=== PATIENT | male | born 1985 | race African-American/Black ===

== ENCOUNTER 2016-09-09 13:54 | Inpatient (IN) | payer OTHER ==
[2016-09-09 15:58] VITALS: BMI 30.8
--- NOTE | 2016-09-09 18:59 | HP ---
Admission ROS S - [facility] Chief Complaint: I WANT TO GO TO REHAB Allergies/Adverse Reactions: Allergies Allergy/AdvReac Type Severity Reaction Status Date / Time mushroom Allergy Severe Hives Verified 09/09/16 18:21 red meat Allergy Unknown Vomiting Uncoded 09/09/16 18:21 History of Present Illness: 31 YEARS OLD MALE WITH LONG HISTORY OF MARIJUANA NICOTINE DEPENDENCE, DENIES MEDICAL ISSUE HAS SCHIZOPHRENIA IS ADMITTED TO REHAB Exam Limitations: No Limitations - Ebola screening Have you traveled outside of the country in the last 21 days: No Have you had contact with anyone from an Ebola affected area: No Have you been sick,other than usual withdrawal symptoms: No Do you have a fever: No - Review of Systems Constitutional: Weight Stable EENT: reports: Other (EYE GLASSES) Respiratory: reports: No Symptoms reported Cardiac: reports: No Symptoms Reported GI: reports: Indigestion : reports: No Symptoms Reported Musculoskeletal: reports: No Symptoms Reported Integumentary: reports: No Symptoms Reported Neuro: reports: No Symptoms reported Endocrine: reports: No Symptoms Reported Hematology: reports: No Symptoms Reported Psychiatric: reports: Judgement Intact, Orientated x3 Other Systems: Reviewed and Negative Patient History - Patient Medical History Hx Anemia: No Hx Asthma: No Hx Chronic Obstructive Pulmonary Disease (COPD): No Hx Cancer: No Hx Cardiac Disorders: No Hx Congestive Heart Failure: No Hx Hypertension: No Hx Hypercholesterolemia: No Hx Pacemaker: No HX Cerebrovascular Accident: No Hx Seizures: No Hx Dementia: No Hx Diabetes: No Hx Gastrointestinal Disorders: Yes (GERD) Hx Liver Disease: No Hx Genitourinary Disorders: No Hx Sexually Transmitted Disorders: No Hx Renal Disease (ESRD): No Hx Thyroid Disease: No Hx Human Immunodeficiency Virus (HIV): No Hx Hepatitis C: No Hx Depression: No Hx Suicide Attempt: No Hx Bipolar Disorder: No Hx Schizophrenia: Yes - Patient Surgical History Past Surgical History: Yes Hx Neurologic Surgery: No Hx Cataract Extraction: No Hx Cardiac Surgery: No Hx Lung Surgery: No Hx Breast Surgery: No Hx Breast Biopsy: No Hx Abdominal Surgery: No Hx Appendectomy: No Hx Cholecystectomy: Yes (esophageal cyst removed) Hx Genitourinary Surgery: No Hx Orthopedic Surgery: No Anesthesia Reaction: No - PPD History Previous Implant?: Yes Documented Results: Negative w/o proof Implanted On Prior R Admission?: No PPD to be Administered?: Yes - Smoking Cessation Smoking history: Current every day smoker Have you smoked in the past 12 months: Yes Aproximately how many cigarettes per day: 40 Cigars Per Day: 0 Hx Chewing Tobacco Use: No Initiated information on smoking cessation: Yes 'Breaking Loose' booklet given: 09/09/16 - Substance & Tx. History Hx Alcohol Use: No Hx Substance Use: Yes Substance Use Type: Marijuana Hx Substance Use Treatment: Yes - Substances Abused Marijuana/Hashish Route: Smoking Frequency: Daily Amount used: 1/4 OZ Age of first use: 16 Date of Last Use: 09/08/16 Family Disease History - Family Disease History Family History: Denies Admission Physical Exam [facility] - Vital Signs Vital Signs: Vital Signs - 24 hr 09/09/16 15:56 Temperature 96.8 F L Pulse Rate 78 Respiratory 20 Rate Blood Pressure 130/76 - Physical General Appearance: Yes: Nourished, Appropriately Dressed HEENTM: Yes: Hearing grossly Normal, Normal ENT Inspection, Normocephalic, Normal Voice Respiratory: Yes: Chest Non-Tender, Lungs Clear, Normal Breath Sounds, No Respiratory Distress, No Accessory Muscle Use Neck: Yes: Supple, Trachea in good position Breast: Yes: Breasts Symetrical Cardiology: Yes: Regular Rhythm, Regular Rate, S1, S2 Abdominal: Yes: Non Tender, Soft Genitourinary: Yes: Within Normal Limits Back: Yes: Normal Inspection Musculoskeletal: Yes: full range of Motion, Gait Steady Extremities: Yes: Normal Inspection, Normal Range of Motion, Non-Tender Neurological: Yes: Fully Oriented, Alert, Motor Strength 5/5, Normal Mood/Affect , Normal Response Integumentary: Yes: Normal Color, Warm Lymphatic: Yes: Within Normal Limits - Diagnostic (1) Cannabis dependence, uncomplicated Current Visit: Yes Status: Acute (2) Nicotine dependence Current Visit: Yes Status: Acute Qualifiers: Nicotine product type: cigarettes Substance use status: uncomplicated Qualified Code(s): F17.210 - Nicotine dependence, cigarettes, uncomplicated (3) GERD (gastroesophageal reflux disease) Current Visit: Yes Status: Acute Qualifiers: Esophagitis presence: without esophagitis Qualified Code(s): K21.9 - Gastro-esophageal reflux disease without esophagitis Cleared for Admission [facility] - Detox or Rehab [facility] Level of Care: Observation Bed Claeared for Rehab Admission: Yes [facility] Breath Alcohol Content Breath Alcohol Content: 0 Urine Drug Screen - Results Drug Screen Negative: No Urine Drug Screen Results: THC-Marijuana
[2016-09-09] MEDS ORDERED: MAG HYDROX/AL HYDROX/SIMETH 30 ML UNIT-DOSE CUP PO PRN (19:41)
[2016-09-09] MEDS ORDERED: guaiFENesin/D-METHORPHAN HB 10 ML UNIT-DOSE CUPS PO PRN (19:41)
[2016-09-09] MEDS ORDERED: hydrOXYzine PAMOATE 50 MG CAPSULE (FP) PO PRN (19:41)
[2016-09-09] MEDS ORDERED: LOPERAMIDE HCL 2 MG CAPSULE PO PRN (19:41)
[2016-09-09] MEDS ORDERED: NICOTINE POLACRILEX 2 MG GUM BC PRN (19:41)
[2016-09-09] MEDS ORDERED: NICOTINE 21 MG/24 HOURS TOPICAL PATCH TD PRN (19:41)
[2016-09-09] MEDS ORDERED: IBUPROFEN 400 MG TABLET (FP) PO PRN (19:41)
[2016-09-09] MEDS ORDERED: MAGNESIUM CITRATE 300 ML BOTTLE PO PRN (19:41)
[2016-09-09] MEDS ORDERED: P-EPHED 60MG/TRIPROLIDI 2.5MG TABLET PO PRN (19:41)
[2016-09-09] MEDS ORDERED: MAGNESIUM HYDROX 2400MG/30ML ORAL SUSPENSION 30 ML CUP PO PRN (19:41)
[2016-09-09] MEDS ORDERED: ACETAMINOPHEN 325 MG TABLET (FP) PO PRN (19:41)
[2016-09-09] MEDS ORDERED: MENTHOL/PHENOL 1 EACH UD MM PRN (19:41)
[2016-09-09] MEDS: THIAMINE HCL 100 MG TABLET (FP) PO SCH (22:17)
[2016-09-09] MEDS: RANITIDINE HCL 150 MG TABLET (FP) PO SCH (22:17)
[2016-09-09] MEDS: diphenhydrAMINE HCL 50 MG CAPSULE PO PRN (22:18)
[2016-09-09 23:17] LABS: URINE APPEARANCE CLEAR; URINE BILIRUBIN NEGATIVE (NEGATIVE); URINE BLOOD NEGATIVE (NEGATIVE); URINE COLOR LT. YELLOW; URINE GLUCOSE (UA) NEGATIVE (NEGATIVE); URINE KETONE NEGATIVE (NEGATIVE); URINE LEUK ESTERASE NEGATIVE (NEGATIVE); URINE NITRITE NEGATIVE (NEGATIVE); URINE PROTEIN NEGATIVE (NEGATIVE); URINE UROBILINOGEN 1.0 E.U/dl E.U./dl (0.2-1.0)
[2016-09-10] MEDS: RANITIDINE HCL 150 MG TABLET (FP) PO SCH ×2 (10:00→21:21)
[2016-09-10] MEDS: PRENATAL VITAMINS W/ FOLIC ACID TABLET (FP) PO SCH (10:00)
[2016-09-10 10:06] LABS: MCH 25.8 pg (25.7-33.7); MCHC 32.4 g/dl (32.0-35.9); MEAN CELL VOLUME 79.5 fl (80-96); MEAN PLT VOLUME 9.7 fl (7.5-11.1); PLATELET COUNT 211 K/MM3 (134-434); RDW 14.1 % (11.9-15.9); WHITE BLOOD COUNT 5.4 K/mm3 (4.0-10.0)
--- NOTE | 2016-09-10 10:20 | EKG ---
Test Reason : Blood Pressure : / mmHG Vent. Rate : 067 BPM Atrial Rate : 067 BPM P-R Int : 154 ms QRS Dur : 104 ms QT Int : 406 ms P-R-T Axes : 051 045 049 degrees QTc Int : 429 ms NORMAL SINUS RHYTHM NORMAL ECG WHEN COMPARED WITH ECG OF 14-JAN-2010 13:09, NO SIGNIFICANT CHANGE WAS FOUND Confirmed by WILLIAM COLÓN MD ([id number]) on 09/10/2016 10:20:18 AM Referred By: Confirmed By:WILLIAM COLÓN MD
[2016-09-10 10:29] LABS: ALBUMIN 4.2 g/dl (3.4-5.0); ALK PHOS 86 U/L (45-117); ANION GAP 7 (8-16); BILIRUBIN,TOTAL 0.6 mg/dL (0.2-1.0); CALCIUM 8.8 mg/dL (8.5-10.1); CO2 28 mmol/L (21-32); CREATININE 1.3 mg/dL (0.7-1.3); GLUCOSE,RANDOM 94 mg/dL (74-106); SGOT/AST 32 U/L (15-37); SGPT/ALT 51 U/L (12-78); TOT PROT 7.5 g/dl (6.4-8.2)
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
[2016-09-10] MEDS: THIAMINE HCL 100 MG TABLET (FP) PO SCH (21:21)
[2016-09-10] MEDS: diphenhydrAMINE HCL 50 MG CAPSULE PO PRN (21:21)
[2016-09-10] MEDS: QUEtiapine FUMARATE 100 MG TABLET (FP) PO SCH (21:21)
[2016-09-11] MEDS: PRENATAL VITAMINS W/ FOLIC ACID TABLET (FP) PO SCH (09:57)
[2016-09-11] MEDS: QUEtiapine FUMARATE 25 MG TABLET (FP) PO SCH (09:57)
[2016-09-11] MEDS: RANITIDINE HCL 150 MG TABLET (FP) PO SCH ×2 (09:57→21:08)
[2016-09-11] MEDS: THIAMINE HCL 100 MG TABLET (FP) PO SCH (21:08)
[2016-09-11] MEDS: diphenhydrAMINE HCL 50 MG CAPSULE PO PRN (21:08)
[2016-09-11] MEDS: QUEtiapine FUMARATE 100 MG TABLET (FP) PO SCH (21:08)
[2016-09-12 06:57] VITALS: BP 104/64; PULSE 68; TEMP 98.1
[2016-09-12] MEDS: RANITIDINE HCL 150 MG TABLET (FP) PO SCH (09:56)
[2016-09-12] MEDS: PRENATAL VITAMINS W/ FOLIC ACID TABLET (FP) PO SCH (09:56)
[2016-09-12] MEDS: QUEtiapine FUMARATE 25 MG TABLET (FP) PO SCH (09:56)
--- NOTE | 2016-09-12 21:19 | PN ---
[facility] Progress Note Note: received nurse informed that the patient walked out the unit, found by security, return to unit, patient wanted to leave the facility to be with his girlfriend. staff encourage the patient to utilize community resources
--- NOTE | 2016-09-16 11:07 | PN ---
[facility] Progress Note Note: On 09/12/16 patient walked off the unit, please see medical staff notes.
== END 2016-09-12 20:45 | disposition left against medical advice (07) | DRG 770 ==
LOC: YASAS 13:54 → Y5N 18:41
PROVIDERS: ADMIT Psychiatry & Neurology Psychiatry; ATTEND Psychiatry & Neurology Psychiatry
PROC: HZ42ZZZ Group Counseling for Substance Abuse Treatment, Cognitive-Behavioral (ICD-10-PCS; principal; 2016-09-09)
DX: F12.20 Cannabis dependence, uncomplicated (principal); F17.210 Nicotine dependence, cigarettes, uncomplicated; F20.9 Schizophrenia, unspecified; F43.10 Post-traumatic stress disorder, unspecified; K21.9 Gastro-esophageal reflux disease without esophagitis; K29.70 Gastritis, unspecified, without bleeding
CPT/HCPCS: 36415; 80053; 81003; 85027; 86593; 93005; 93010

== ENCOUNTER 2018-07-01 09:22 | Emergency (ER) | payer OTHER ==
[2018-07-01 09:40] VITALS: BP 140/81; PULSE 85; TEMP 98.1; BMI 29.2
[2018-07-01] MEDS ORDERED: INDOMETHACIN 50 MG CAPSULE PO ONE (10:23)
--- NOTE | 2018-07-01 10:48 | PDOC ---
History of Present Illness - General Chief Complaint: Injury Stated Complaint: INJURY Time Seen by Provider: 07/01/18 10:17 History Source: Patient Exam Limitations: No Limitations - History of Present Illness Initial Comments: 07/01/18 10:44 c/o sudden onset left foot pain started last night after he has been wearing new sneakers for the past 2 days. Pt denies direct trauma, no fever, no history of gout however pt admits to eating chocolate and drinking ETOH last night. Pt has a history of psychiatric disorder on meds, nothing new . Past History - Past Medical History Allergies/Adverse Reactions: Allergies Allergy/AdvReac Type Severity Reaction Status Date / Time mushroom Allergy Severe Hives Verified 07/01/18 09:34 Home Medications: Ambulatory Orders Omeprazole Magnesium [Prilosec] 10 mg PO DAILY 09/09/16 Quetiapine Fumarate [Seroquel -] 100 mg PO BID 09/09/16 Indomethacin [Indocin -] 50 mg PO TID PRN #21 capsule 07/01/18 Anemia: No Asthma: No Cancer: No Cardiac Disorders: No CVA: No COPD: No CHF: No Dementia: No Diabetes: No GI Disorders: No Disorders: No HTN: No Hypercholesterolemia: No Kidney Stones: No Liver Disease: No Seizures: No Thyroid Disease: No - Surgical History Abdominal Surgery: No Appendectomy: No Cardiac Surgery: No Cholecystectomy: Yes (esophageal cyst removed) Lung Surgery: No Neurologic Surgery: No Orthopedic Surgery: No - Immunization History Immunization Up to Date: Yes - Suicide/Smoking/Psychosocial Hx Smoking History: Never smoked Have you smoked in the past 12 months: Yes Number of Cigarettes Smoked Daily: 8 Cigars Per Day: 0 Information on smoking cessation initiated: No 'Breaking Loose' booklet given: 09/09/16 Hx Alcohol Use: No Drug/Substance Use Hx: No Substance Use Type: Marijuana Hx Substance Use Treatment: Yes ([facility] first inpatient rehab. tx) Review of Systems - Review of Systems Able to Perform ROS?: Yes Is the patient limited German proficient: No Musculoskeletal: Yes: Symptoms Reported *Physical Exam - Vital Signs Last Vital Signs Temp Pulse Resp BP Pulse Ox 98.1 F 85 17 140/81 99 07/01/18 09:35 07/01/18 09:35 07/01/18 09:35 07/01/18 09:35 07/01/18 09:35 - Physical Exam General Appearance: Yes: Nourished, Appropriately Dressed HEENT: positive: EOMI, FABIAN Musculoskeletal: positive: Normal Inspection Extremity: positive: Normal Capillary Refill, Tender (lateral foot base of fith metatarsal with redness, point tenderness , skin intact ) Integumentary: positive: Normal Color, Dry, Warm Neurologic: positive: Fully Oriented, Alert, Normal Mood/Affect, Normal Response , Motor Strength 01/02 ED Treatment Course - RADIOLOGY Radiology Studies Ordered: Category Date Time Status FOOT-LEFT [RAD] Stat Radiology 07/01/18 10:23 Taken Medical Decision Making - Medical Decision Making 07/01/18 10:46 cc: left foot pain 06/09 started this AM pt denies trauma area of redness, warm to touch over the joint of the 5th base metatarsal will get xray to r/o fracture most likely gout will give indocin now *DC/Admit/Observation/Transfer Diagnosis at time of Disposition: Foot pain, left - Discharge Dispostion Disposition: HOME Condition at time of disposition: Good - Prescriptions Prescriptions: Indomethacin [Indocin -] 50 mg PO TID PRN #21 capsule PRN Reason: Pain - Referrals Referrals: Laura Kearney MD [Primary Care Provider] - Jaiden Prabhakar DO [Staff Physician] - - Patient Instructions Additional Instructions: please follow with the orthopedist for follow up elevate and apply warm compresses to the area of pain every 2-3 hrs for 20 minutes take indocin for pain as directed avoid wearing the sneakers at this time, use the hard sole shoe with jorge l wrap - Post Discharge Activity
== END 2018-07-01 11:51 | disposition home or self-care (01) ==
LOC: JERFT 09:22
DX: M79.672 Pain in left foot (principal); F99 Mental disorder, not otherwise specified
CPT/HCPCS: 36415; 73630-TC-LT; 84550; 99281-25

== ENCOUNTER 2020-03-23 08:12 | Inpatient (IN) | payer OTHER ==
--- NOTE | 2020-03-23 09:12 | B[facility].RME ---
Substance Use & Tx History - Substance Use History Alcohol Substance amount: 1 pint vodka Frequency of use: Daily Substance route: Oral Date of Last Use: 03/22/20 PCP Substance amount: 2 blunts Frequency of use: Daily Substance route: Smoking Date of Last Use: 03/22/20 Physical/Psych/Mental Status - Behavior General Behavior: Increased activity (restlessness, agitation) Eye Contact: Normal - Cooperativeness Cooperativeness: Cooperative - Thinking Thought Processes: Tight, Logical, Goal Directed - Physical Health Problems Is patient presently having any pain?: No Does patient presently have any injuries (include location): No Does patient currently have a fever: No Is patient : No CIWA Nausea/Vomitin Muscle Tremors: 1-None Visible, but [place] Anxiety: 2 Agitation: 2 Paroxysmal Sweats: 1-Minimal Palms Moist Orientation: 1-Uncertain about Date Tacttile Disturbances: 7-Continuous Hallucination Auditory Disturbances: 0-None Visual Disturbances: 0-None Headache: 2-Mild CIWA-Ar Total Score: 19
[2020-03-23 09:47] VITALS: BMI 26.6
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
[2020-03-23] MEDS ORDERED: MAGNESIUM CITRATE 300 ML BOTTLE PO PRN (10:03)
[2020-03-23] MEDS ORDERED: BISMUTH SUBSALICYLATE 524 MG/30 ML UD PO PRN (10:03)
[2020-03-23] MEDS ORDERED: MAG HYDROX/AL HYDROX/SIMETH 30 ML UNIT-DOSE CUP PO PRN (10:03)
[2020-03-23] MEDS ORDERED: NICOTINE POLACRILEX 2 MG GUM BUC PRN (10:03)
[2020-03-23] MEDS ORDERED: MAGNESIUM HYDROX 2400MG/30ML ORAL SUSPENSION 30 ML CUP PO PRN (10:03)
[2020-03-23] MEDS ORDERED: METHOCARBAMOL 500 MG TABLET PO PRN (10:03)
[2020-03-23] MEDS ORDERED: ACETAMINOPHEN 325 MG TABLET (FP) PO PRN ×2 (10:03)
[2020-03-23] MEDS ORDERED: MENTHOL/PHENOL 1 EACH UD MM PRN (10:03)
[2020-03-23] MEDS ORDERED: chlordiazePOXIDE HCL 25 MG CAPSULE PO PRN (10:03)
[2020-03-23] MEDS ORDERED: IBUPROFEN 400 MG TABLET (FP) PO PRN (10:03)
[2020-03-23] MEDS ORDERED: ONDANSETRON *ODT* 4 MG TABLET SL ONE (10:30)
[2020-03-23] MEDS ORDERED: hydrOXYzine PAMOATE 25 MG CAPSULE (FP) PO PRN (12:26)
[2020-03-23] MEDS ORDERED: ONDANSETRON *ODT* 4 MG TABLET SL PRN (12:26)
[2020-03-23] MEDS: PANTOPRAZOLE 40 MG TABLET PO SCH (12:46)
[2020-03-23] MEDS: NICOTINE 7 MG/24 HOURS TOPICAL PATCH TD SCH (12:50)
[2020-03-23] MEDS: PRENATAL VITAMINS W/ FOLIC ACID TABLET (FP) PO SCH (12:51)
[2020-03-23] MEDS: chlordiazePOXIDE HCL 25 MG CAPSULE PO SCH ×3 (12:54→22:23)
[2020-03-23] MEDS ORDERED: hydrOXYzine PAMOATE 25 MG CAPSULE (FP) PO SCH (14:00)
[2020-03-23 14:48] LABS: HEMATOCRIT 44.2 % (35.4-49); HEMOGLOBIN 14.2 GM/dL (11.7-16.9); MCH 26.3 pg (25.7-33.7); MEAN PLT VOLUME 9.5 fl (7.5-11.1); PLATELET COUNT 273 K/MM3 (134-434); RBC 5.39 M/mm3 (4.00-5.60); RDW 14.7 % (11.9-15.9); WHITE BLOOD COUNT 7.5 K/mm3 (4.0-10.0)
[2020-03-23 15:07] LABS: ALBUMIN 4.4 g/dl (3.4-5.0); BILIRUBIN,TOTAL 0.3 mg/dL (0.2-1); BLOOD UREA NITROGEN 17.6 mg/dL (7-18); CALCIUM 9.5 mg/dL (8.5-10.1); CREATININE 1.2 mg/dL (0.55-1.3); POTASSIUM 4.2 mmol/L (3.5-5.1); TOT PROT 8.5 g/dl (6.4-8.2)
--- NOTE | 2020-03-23 15:16 | PN ---
S Progress Note Note: Patient was approached at bedside. He was very sedated and not appropriate for interview at this time.
[2020-03-23] MEDS: THIAMINE HCL 100 MG TABLET (FP) PO SCH (22:23)
[2020-03-23] MEDS: MELATONIN 5 MG TABLETS PO SCH (22:24)
[2020-03-24] MEDS: chlordiazePOXIDE HCL 25 MG CAPSULE PO SCH ×4 (06:39→22:03)
[2020-03-24] MEDS: PRENATAL VITAMINS W/ FOLIC ACID TABLET (FP) PO SCH (11:43)
[2020-03-24] MEDS: NICOTINE 7 MG/24 HOURS TOPICAL PATCH TD SCH (11:43)
[2020-03-24] MEDS: PANTOPRAZOLE 40 MG TABLET PO SCH (11:43)
--- NOTE | 2020-03-24 12:16 | CONSULT ---
[facility] Psychiatric Consult - Data Date of interview: 03/24/20 Admission source: [facility] Identifying data: Patient is approached, by typewriter ribbon winder, at bedside for psychiatric interview. Mr Smith refused. " What's the problem. I cannot talk now." Nursing staff is made aware.
--- NOTE | 2020-03-24 13:04 | PN ---
[facility] CIWA - CIWA Score Nausea/Vomitin-No Nausea/No Vomiting Muscle Tremors: 3 Anxiety: 3 Agitation: 2 Paroxysmal Sweats: No Perspiration Orientation: 0-Oriented Tacttile Disturbances: 0-None Auditory Disturbances: 1-Very Mild Visual Disturbances: 3-Moderate Sensitivity Headache: 0-None Present CIWA-Ar Total Score: 12 S Progress Note (SOAP) Subjective: Complaints of tremors, sweats, irritability, anxiety, light an noise s ensitivity. Objective: 03/24/20 13:02 Vital Signs 03/24/20 03/24/20 05:21 09:00 Temperature 97.1 F L 97.8 F Pulse Rate 71 91 H Respiratory 16 18 Rate Blood Pressure 104/65 108/64 O2 Sat by Pulse 99 99 Oximetry (%) Laboratory Last Values WBC 7.5 K/mm3 (4.0-10.0) 03/23/20 11:00 RBC 5.39 M/mm3 (4.00-5.60) 03/23/20 11:00 Hgb 14.2 GM/dL (11.7-16.9) 03/23/20 11:00 Hct 44.2 % (35.4-49) D 03/23/20 11:00 MCV 82.0 fl (80-96) 03/23/20 11:00 MCH 26.3 pg (25.7-33.7) 03/23/20 11:00 MCHC 32.0 g/dl (32.0-35.9) 03/23/20 11:00 RDW 14.7 % (11.9-15.9) 03/23/20 11:00 Plt Count 273 K/MM3 (134-434) D 03/23/20 11:00 MPV 9.5 fl (7.5-11.1) 03/23/20 11:00 Sodium 141 mmol/L (136-145) 03/23/20 10:40 Potassium 4.2 mmol/L (3.5-5.1) 03/23/20 10:40 Chloride 106 mmol/L (98-107) 03/23/20 10:40 Carbon Dioxide 28 mmol/L (21-32) 03/23/20 10:40 Anion Gap 7 MMOL/L (8-16) L 03/23/20 10:40 BUN 17.6 mg/dL (7-18) 03/23/20 10:40 Creatinine 1.2 mg/dL (0.55-1.3) 03/23/20 10:40 Est GFR (CKD-EPI)AfAm 90.89 03/23/20 10:40 Est GFR (CKD-EPI)NonAf 78.42 03/23/20 10:40 Random Glucose 77 mg/dL (74-106) 03/23/20 10:40 Calcium 9.5 mg/dL (8.5-10.1) 03/23/20 10:40 Total Bilirubin 0.3 mg/dL (0.2-1) 03/23/20 10:40 AST 31 U/L (15-37) 03/23/20 10:40 ALT 49 U/L (13-61) 03/23/20 10:40 Alkaline Phosphatase 97 U/L (45-117) 03/23/20 10:40 Total Protein 8.5 g/dl (6.4-8.2) H 03/23/20 10:40 Albumin 4.4 g/dl (3.4-5.0) 03/23/20 10:40 Syphilis Serology Non-reactive (NONREACTIVE) 03/23/20 10:40 Labs noted. Assessment: 03/24/20 13:03 Alert and oriented x3, in no acute respiratory distress. Full ROM, ambulatory without assistance. Withdrawal symptoms. Plan: Continue detox protocol.
[2020-03-24] MEDS: THIAMINE HCL 100 MG TABLET (FP) PO SCH (22:03)
[2020-03-24] MEDS: CARBAMIDE PEROXIDE 6.5% OTIC 15 ML BOTTLE AU SCH (22:04)
[2020-03-24] MEDS: MELATONIN 5 MG TABLETS PO SCH (22:04)
[2020-03-25] MEDS: chlordiazePOXIDE HCL 25 MG CAPSULE PO SCH ×4 (06:22→22:03)
[2020-03-25] MEDS: CARBAMIDE PEROXIDE 6.5% OTIC 15 ML BOTTLE AU SCH ×2 (10:07→21:50)
[2020-03-25] MEDS: PANTOPRAZOLE 40 MG TABLET PO SCH (10:08)
[2020-03-25] MEDS: PRENATAL VITAMINS W/ FOLIC ACID TABLET (FP) PO SCH (10:08)
[2020-03-25] MEDS: NICOTINE 7 MG/24 HOURS TOPICAL PATCH TD SCH (10:08)
--- NOTE | 2020-03-25 14:25 | PN ---
S CIWA - CIWA Score Nausea/Vomitin-Mild Nausea/No Vomiting Muscle Tremors: 2 Anxiety: 2 Agitation: 2 Paroxysmal Sweats: 2 Orientation: 0-Oriented Tacttile Disturbances: 1-Very Mild Itch/Numbness Auditory Disturbances: 0-None Visual Disturbances: 0-None Headache: 0-None Present CIWA-Ar Total Score: 10 BHS Progress Note (SOAP) Subjective: Feels ok Objective: 03/25/20 14:23 Last Vital Signs Temp Pulse Resp BP Pulse Ox 97.3 F L 69 17 107/68 98 03/25/20 13:13 03/25/20 13:13 03/25/20 13:13 03/25/20 13:13 03/25/20 13:13 Laboratory Tests 03/23/20 03/23/20 03/23/20 10:40 10:40 11:00 WBC 7.5 RBC 5.39 Hgb 14.2 Hct 44.2 D MCV 82.0 MCH 26.3 MCHC 32.0 RDW 14.7 Plt Count 273 D MPV 9.5 Sodium 141 Potassium 4.2 Chloride 106 Carbon Dioxide 28 Anion Gap 7 L BUN 17.6 Creatinine 1.2 Est GFR (CKD-EPI)AfAm 90.89 Est GFR (CKD-EPI)NonAf 78.42 Random Glucose 77 Calcium 9.5 Total Bilirubin 0.3 AST 31 ALT 49 Alkaline Phosphatase 97 Total Protein 8.5 H Albumin 4.4 Syphilis Serology Non-reactive COVID-19 (SARAH) 03/23/20 11:00 WBC RBC Hgb Hct MCV MCH MCHC RDW Plt Count MPV Sodium Potassium Chloride Carbon Dioxide Anion Gap BUN Creatinine Est GFR (CKD-EPI)AfAm Est GFR (CKD-EPI)NonAf Random Glucose Calcium Total Bilirubin AST ALT Alkaline Phosphatase Total Protein Albumin Syphilis Serology COVID-19 (SARAH) Not detected Labs reviewed Assessment: 03/25/20 14:24 Withdrawal sxs Plan: Continue detox Encouraged PO water intake
[2020-03-25] MEDS: MELATONIN 5 MG TABLETS PO SCH (21:51)
[2020-03-25] MEDS: THIAMINE HCL 100 MG TABLET (FP) PO SCH (22:03)
[2020-03-26] MEDS ORDERED: chlordiazePOXIDE HCL 10 MG CAPSULE PO PRN
[2020-03-26] MEDS: chlordiazePOXIDE HCL 10 MG CAPSULE PO SCH ×2 (06:17→11:23)
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
[2020-03-26] MEDS ORDERED: LURASIDONE HCL 20 MG TABLET PO SCH (10:00)
[2020-03-26] MEDS: PANTOPRAZOLE 40 MG TABLET PO SCH (11:23)
[2020-03-26] MEDS: CARBAMIDE PEROXIDE 6.5% OTIC 15 ML BOTTLE AU SCH (11:23)
[2020-03-26] MEDS: NICOTINE 7 MG/24 HOURS TOPICAL PATCH TD SCH (11:24)
[2020-03-26] MEDS: PRENATAL VITAMINS W/ FOLIC ACID TABLET (FP) PO SCH (11:24)
--- NOTE | 2020-03-26 11:28 | PN ---
[facility] CIWA - CIWA Score Nausea/Vomitin-No Nausea/No Vomiting Muscle Tremors: None Anxiety: 4-Mod. Anxious/Guarded Agitation: 4-Moderately Restless Paroxysmal Sweats: No Perspiration Orientation: 0-Oriented Tacttile Disturbances: 0-None Auditory Disturbances: 0-None Visual Disturbances: 0-None Headache: 0-None Present CIWA-Ar Total Score: 8 BHS Progress Note (SOAP) Subjective: agitation restless irritable Objective: 03/26/20 11:12 Vital Signs Temperature 97.5 F L 03/26/20 08:26 Pulse Rate 77 03/26/20 08:26 Respiratory Rate 18 03/26/20 08:26 Blood Pressure 106/72 03/26/20 08:26 O2 Sat by Pulse Oximetry (%) 97 03/26/20 05:28 aaox3 ambulating no acute distress Assessment: 03/26/20 11:13 withdrawals Plan: continue detox
[2020-03-26 16:46] VITALS: BP 116/68; PULSE 94; TEMP 97.5
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
[2020-03-27] MEDS ORDERED: chlordiazePOXIDE HCL 10 MG CAPSULE PO SCH (05:00)
[2020-03-28] MEDS ORDERED: chlordiazePOXIDE HCL 10 MG CAPSULE PO ONE (05:00)
== END 2020-03-26 16:50 | disposition left against medical advice (07) | DRG 770 ==
LOC: YASAS 08:12 → Y6N 09:35
PROVIDERS: ADMIT Allergy & Immunology; ATTEND Allergy & Immunology
PROC: HZ2ZZZZ Detoxification Services for Substance Abuse Treatment (ICD-10-PCS; principal; 2020-03-23)
DX: F10.230 Alcohol dependence with withdrawal, uncomplicated (principal); F16.20 Hallucinogen dependence, uncomplicated; F17.210 Nicotine dependence, cigarettes, uncomplicated; F20.9 Schizophrenia, unspecified; F19.24 Other psychoactive substance dependence with psychoactive substance-induced mood disorder; F43.10 Post-traumatic stress disorder, unspecified; Z62.810 Personal history of physical and sexual abuse in childhood; Z91.410 Personal history of adult physical and sexual abuse; Z91.5 Personal history of self-harm; Z91.018 Allergy to other foods; Z56.0 Unemployment, unspecified; Z59.0 Homelessness
CPT/HCPCS: 36415; 80053; 85027; 86780; Q0162; U0003

== ENCOUNTER 2020-08-03 12:53 | Emergency (ER) | payer OTHER ==
[2020-08-03 13:11] VITALS: BP 132/89; PULSE 92; TEMP 98.9; BMI 25.1
[2020-08-03 14:20] LABS: BASO % 0.5 % (0-2.0); EOS % 1.6 % (0-4.5); HEMATOCRIT 39.6 % (35.4-49); HEMOGLOBIN 12.7 GM/dL (11.7-16.9); LYMPH % 22.2 % (8-40); MCH 26.4 pg (25.7-33.7); MCHC 32.2 g/dl (32.0-35.9); MEAN CELL VOLUME 82.2 fl (80-96); MEAN PLT VOLUME 8.6 fl (7.5-11.1); MONO % 6.8 % (3.8-10.2); NEUT % 68.9 % (42.8-82.8); PLATELET COUNT 268 K/MM3 (134-434); RBC 4.82 M/mm3 (4.00-5.60); WHITE BLOOD COUNT 8.9 K/mm3 (4.0-10.0)
[2020-08-03 14:31] LABS: COCAINE, UR NEGATIVE ng/ml (CUTOFF=300); METHADONE, UR NEGATIVE ng/ml (CUTOFF=300); OPIATES, URI NEGATIVE ng/ml (CUTOFF=300); URINE AMPHETAMINES NEGATIVE ng/ml (CUTOFF=500); URINE BARBITURATES NEGATIVE ng/ml (CUTOFF=200); URINE BENZODIAZEPINES NEGATIVE ng/ml (CUTOFF=200)
[2020-08-03 14:40] LABS: PHENCYCLIDINE,URINE POSITIVE ng/ml (CUTOFF=25); POTASSIUM 4.1 mmol/L (3.5-5.1)
[2020-08-03 14:42] LABS: ALBUMIN 3.9 g/dl (3.4-5.0); BLOOD UREA NITROGEN 7.5 mg/dL (7-18); CALCIUM 9.4 mg/dL (8.5-10.1)
[2020-08-03 14:45] LABS: CREATININE 1.1 mg/dL (0.55-1.3)
[2020-08-03 14:47] LABS: BILIRUBIN,TOTAL 0.6 mg/dL (0.2-1); TOT PROT 9.1 g/dl (6.4-8.2)
[2020-08-03 15:33] LABS: URINE APPEARANCE CLEAR; URINE BILIRUBIN NEGATIVE (NEGATIVE); URINE COLOR YELLOW; URINE GLUCOSE (UA) NEGATIVE (NEGATIVE); URINE KETONE TRACE (NEGATIVE); URINE LEUK ESTERASE NEGATIVE (NEGATIVE); URINE NITRITE NEGATIVE (NEGATIVE); URINE PROTEIN TRACE (NEGATIVE)
== END 2020-08-03 17:13 | disposition home or self-care (01) ==
LOC: JER 12:53
DX: K59.00 Constipation, unspecified (principal)
CPT/HCPCS: 36415; 74177-TC; 80053; 80307; 81003; 85025; 93971-TC; 99284-25; Q9967

== ENCOUNTER 2020-08-20 11:56 | Inpatient (IN) | payer OTHER ==
[2020-08-20 13:42] VITALS: BMI 26.2
[2020-08-20] MEDS ORDERED: ACETAMINOPHEN 325 MG TABLET (FP) PO PRN (16:58)
[2020-08-20] MEDS ORDERED: MAGNESIUM CITRATE 300 ML BOTTLE PO PRN (16:58)
[2020-08-20] MEDS ORDERED: MAGNESIUM HYDROX 2400MG/30ML ORAL SUSPENSION 30 ML CUP PO PRN (16:58)
[2020-08-20] MEDS ORDERED: IBUPROFEN 400 MG TABLET (FP) PO PRN (16:58)
[2020-08-20] MEDS ORDERED: NICOTINE POLACRILEX 2 MG GUM BC PRN (16:58)
[2020-08-20] MEDS ORDERED: LOPERAMIDE HCL 2 MG CAPSULE PO PRN (16:58)
[2020-08-20] MEDS ORDERED: guaiFENesin 200 MG/10 ML 10 ML UNIT-DOSE CUPS PO PRN (16:58)
[2020-08-20] MEDS ORDERED: MAG HYDROX/AL HYDROX/SIMETH 30 ML UNIT-DOSE CUP PO PRN (16:58)
[2020-08-20] MEDS ORDERED: P-EPHED 60MG/TRIPROLIDI 2.5MG TABLET PO PRN (16:58)
[2020-08-20 18:27] VITALS: BP 119/75; PULSE 79; TEMP 97.7
[2020-08-20] MEDS: hydrOXYzine PAMOATE 25 MG CAPSULE (FP) PO SCH ×2 (19:03→21:19)
[2020-08-20] MEDS: MELATONIN 5 MG TABLETS PO SCH ×2 (21:19→21:21)
[2020-08-20] MEDS ORDERED: THIAMINE HCL 100 MG TABLET (FP) PO SCH (22:00)
[2020-08-21] MEDS ORDERED: MASKS NR ONE (02:20)
[2020-08-21] MEDS: hydrOXYzine PAMOATE 25 MG CAPSULE (FP) PO SCH ×4 (07:11→17:59)
[2020-08-21] MEDS ORDERED: NICOTINE 7 MG/24 HOURS TOPICAL PATCH TD SCH (10:00)
[2020-08-21] MEDS ORDERED: PRENATAL VITAMINS W/ FOLIC ACID TABLET (FP) PO SCH (10:00)
== END 2020-08-21 19:05 | DRG 772 ==
LOC: YASAS 11:56 → Y5N 17:34
PROVIDERS: ADMIT Allergy & Immunology; ATTEND Allergy & Immunology
PROC: HZ42ZZZ Group Counseling for Substance Abuse Treatment, Cognitive-Behavioral (ICD-10-PCS; principal; 2020-08-20)
DX: F10.20 Alcohol dependence, uncomplicated (principal); F16.10 Hallucinogen abuse, uncomplicated; F17.210 Nicotine dependence, cigarettes, uncomplicated; K29.20 Alcoholic gastritis without bleeding; K21.9 Gastro-esophageal reflux disease without esophagitis; R46.2 Strange and inexplicable behavior; Z59.0 Homelessness; Z91.018 Allergy to other foods
CPT/HCPCS: C9803; U0003

== ENCOUNTER 2021-04-05 11:55 | Inpatient (IN) | payer OTHER ==
[2021-04-05 12:15] VITALS: BMI 34.2
[2021-04-05] MEDS ORDERED: LOPERAMIDE HCL 2 MG CAPSULE PO PRN (20:48)
[2021-04-05] MEDS ORDERED: MAGNESIUM HYDROX 2400MG/30ML ORAL SUSPENSION 30 ML CUP PO PRN (20:48)
[2021-04-05] MEDS ORDERED: ACETAMINOPHEN 325 MG TABLET (FP) PO PRN (20:48)
[2021-04-05] MEDS ORDERED: MAGNESIUM CITRATE 300 ML BOTTLE PO PRN (20:48)
[2021-04-05] MEDS ORDERED: MAG HYDROX/AL HYDROX/SIMETH 30 ML UNIT-DOSE CUP PO PRN (20:48)
[2021-04-05] MEDS ORDERED: P-EPHED 60MG/TRIPROLIDI 2.5MG TABLET PO PRN (20:48)
[2021-04-05] MEDS ORDERED: hydrOXYzine PAMOATE 25 MG CAPSULE (FP) PO PRN (20:48)
[2021-04-05] MEDS ORDERED: guaiFENesin 200 MG/10 ML 10 ML UNIT-DOSE CUPS PO PRN (20:48)
[2021-04-05] MEDS: PANTOPRAZOLE 20 MG TABLET PO SCH (22:10)
[2021-04-05] MEDS: MELATONIN 5 MG TABLETS PO SCH (22:10)
[2021-04-05] MEDS: THIAMINE HCL 100 MG TABLET (FP) PO SCH (22:10)
[2021-04-05] MEDS: IBUPROFEN 400 MG TABLET (FP) PO PRN (22:52)
[2021-04-06] MEDS: IBUPROFEN 400 MG TABLET (FP) PO PRN ×2 (03:46→19:15)
[2021-04-06 07:16] VITALS: TEMP 97.1
[2021-04-06 08:58] LABS: HEMATOCRIT 40.6 % (35.4-49); HEMOGLOBIN 13.5 GM/dL (11.7-16.9); MCHC 33.3 g/dl (32.0-35.9); MEAN CELL VOLUME 78.1 fl (80-96); MEAN PLT VOLUME 8.6 fl (7.5-11.1); PLATELET COUNT 297 10^3/uL (134-434); RDW 14.6 % (11.9-15.9); WHITE BLOOD COUNT 11.1 K/mm3 (4.0-10.0)
[2021-04-06 09:22] LABS: CALCIUM 8.6 mg/dL (8.5-10.1)
[2021-04-06 09:27] LABS: CREATININE 1.2 mg/dL (0.55-1.3)
[2021-04-06 09:28] LABS: BILIRUBIN,TOTAL 0.4 mg/dL (0.2-1); TOT PROT 7.8 g/dl (6.4-8.2)
[2021-04-06] MEDS: PRENATAL VITAMINS W/ FOLIC ACID TABLET (FP) PO SCH (09:36)
[2021-04-06] MEDS: PANTOPRAZOLE 20 MG TABLET PO SCH (09:36)
[2021-04-06] MEDS: QUEtiapine FUMARATE 100 MG TABLET (FP) PO SCH ×2 (11:41→21:27)
[2021-04-06] MEDS: SERTRALINE HCL 50 MG TABLET (FP) PO SCH (11:41)
[2021-04-06] MEDS ORDERED: LURASIDONE HCL 20 MG TABLET PO SCH ×2 (18:00)
[2021-04-06] MEDS: MELATONIN 5 MG TABLETS PO SCH (21:26)
[2021-04-06] MEDS: THIAMINE HCL 100 MG TABLET (FP) PO SCH (21:26)
[2021-04-06] MEDS ORDERED: QUEtiapine FUMARATE 100 MG TABLET (FP) PO SCH (22:00)
[2021-04-07 07:16] VITALS: BP 110/67; PULSE 87
[2021-04-07] MEDS: PRENATAL VITAMINS W/ FOLIC ACID TABLET (FP) PO SCH (09:16)
[2021-04-07] MEDS: QUEtiapine FUMARATE 100 MG TABLET (FP) PO SCH (09:16)
[2021-04-07] MEDS: SERTRALINE HCL 50 MG TABLET (FP) PO SCH (09:16)
[2021-04-07] MEDS: PANTOPRAZOLE 20 MG TABLET PO SCH (09:16)
[2021-04-07 13:11] LABS: URINE APPEARANCE CLOUDY; URINE BILIRUBIN NEGATIVE (NEGATIVE); URINE COLOR YELLOW; URINE GLUCOSE (UA) NEGATIVE (NEGATIVE); URINE KETONE NEGATIVE (NEGATIVE); URINE LEUK ESTERASE NEGATIVE (NEGATIVE); URINE NITRITE NEGATIVE (NEGATIVE); URINE PROTEIN NEGATIVE (NEGATIVE)
== END 2021-04-07 15:00 | disposition home or self-care (01) | DRG 772 ==
LOC: YASAS 11:55 → Y3E 21:42 → UNDOADMIN 21:42 → Y3E 21:46
PROVIDERS: ADMIT Allergy & Immunology; ATTEND Allergy & Immunology
PROC: HZ42ZZZ Group Counseling for Substance Abuse Treatment, Cognitive-Behavioral (ICD-10-PCS; principal; 2021-04-05)
DX: F10.20 Alcohol dependence, uncomplicated (principal); F12.20 Cannabis dependence, uncomplicated; F16.10 Hallucinogen abuse, uncomplicated; F17.210 Nicotine dependence, cigarettes, uncomplicated; F25.9 Schizoaffective disorder, unspecified; F43.10 Post-traumatic stress disorder, unspecified; K21.9 Gastro-esophageal reflux disease without esophagitis; Z91.018 Allergy to other foods; Z91.410 Personal history of adult physical and sexual abuse; Z62.810 Personal history of physical and sexual abuse in childhood; Z56.0 Unemployment, unspecified; Z59.0 Homelessness
CPT/HCPCS: 36415; 80053; 81003; 85027; 86780; C9803; U0003; U0005

== ENCOUNTER 2021-04-09 00:43 | Inpatient (IN) | payer OTHER ==
[2021-04-09] MEDS ORDERED: MAG HYDROX/AL HYDROX/SIMETH 30 ML UNIT-DOSE CUP PO PRN (02:12)
[2021-04-09] MEDS ORDERED: guaiFENesin 200 MG/10 ML 10 ML UNIT-DOSE CUPS PO PRN (02:12)
[2021-04-09] MEDS ORDERED: P-EPHED 60MG/TRIPROLIDI 2.5MG TABLET PO PRN (02:12)
[2021-04-09] MEDS ORDERED: LOPERAMIDE HCL 2 MG CAPSULE PO PRN (02:12)
[2021-04-09] MEDS ORDERED: MAGNESIUM HYDROX 2400MG/30ML ORAL SUSPENSION 30 ML CUP PO PRN (02:12)
[2021-04-09] MEDS ORDERED: MAGNESIUM CITRATE 300 ML BOTTLE PO PRN (02:12)
[2021-04-09] MEDS ORDERED: METOPROLOL TARTRATE 25 MG TABLET (FP) PO ONE (02:14)
[2021-04-09 02:53] VITALS: BMI 35.9
[2021-04-09 10:47] LABS: HEMATOCRIT 41.2 % (35.4-49); HEMOGLOBIN 13.4 GM/dL (11.7-16.9); MCH 25.7 pg (25.7-33.7); MCHC 32.6 g/dl (32.0-35.9); MEAN CELL VOLUME 78.8 fl (80-96); MEAN PLT VOLUME 8.8 fl (7.5-11.1); PLATELET COUNT 326 10^3/uL (134-434); RBC 5.23 M/mm3 (4.00-5.60); RDW 14.8 % (11.9-15.9); WHITE BLOOD COUNT 12.1 K/mm3 (4.0-10.0)
[2021-04-09 10:57] LABS: ALBUMIN 4.3 g/dl (3.4-5.0); BLOOD UREA NITROGEN 18.3 mg/dL (7-18)
[2021-04-09 10:58] LABS: CALCIUM 8.9 mg/dL (8.5-10.1)
[2021-04-09 10:59] LABS: BILIRUBIN,TOTAL 0.3 mg/dL (0.2-1); TOT PROT 8.5 g/dl (6.4-8.2)
[2021-04-09 11:02] LABS: CREATININE 1.4 mg/dL (0.55-1.3)
[2021-04-09] MEDS: PRENATAL VITAMINS W/ FOLIC ACID TABLET (FP) PO SCH (11:20)
[2021-04-09] MEDS: PANTOPRAZOLE 20 MG TABLET PO SCH (11:22)
[2021-04-09 11:42] LABS: HIV INTERPRETATION NEGATIVE (NEGATIVE)
[2021-04-09] MEDS: LURASIDONE HCL 20 MG TABLET PO SCH (13:23)
[2021-04-09] MEDS: SERTRALINE HCL 50 MG TABLET (FP) PO SCH (13:23)
[2021-04-09] MEDS: QUEtiapine FUMARATE 400 MG TABLET PO SCH (21:28)
[2021-04-09] MEDS: THIAMINE HCL 100 MG TABLET (FP) PO SCH (21:28)
[2021-04-09] MEDS ORDERED: MELATONIN 5 MG TABLETS PO SCH (22:00)
[2021-04-09] MEDS ORDERED: QUEtiapine FUMARATE 300 MG TABLET PO SCH (22:00)
[2021-04-10] MEDS: QUEtiapine FUMARATE 100 MG TABLET (FP) PO SCH (07:33)
[2021-04-10] MEDS: SERTRALINE HCL 50 MG TABLET (FP) PO SCH (10:24)
[2021-04-10] MEDS: PRENATAL VITAMINS W/ FOLIC ACID TABLET (FP) PO SCH (10:24)
[2021-04-10] MEDS: hydrOXYzine PAMOATE 25 MG CAPSULE (FP) PO PRN (10:24)
[2021-04-10] MEDS: LURASIDONE HCL 20 MG TABLET PO SCH (10:24)
[2021-04-10] MEDS: PANTOPRAZOLE 20 MG TABLET PO SCH (10:24)
[2021-04-10 18:29] LABS: URINE APPEARANCE CLEAR; URINE BILIRUBIN NEGATIVE (NEGATIVE); URINE COLOR YELLOW; URINE GLUCOSE (UA) NEGATIVE (NEGATIVE); URINE KETONE NEGATIVE (NEGATIVE); URINE LEUK ESTERASE NEGATIVE (NEGATIVE); URINE NITRITE NEGATIVE (NEGATIVE); URINE PROTEIN NEGATIVE (NEGATIVE); URINE UROBILINOGEN 0.2 mg/dL (0.2-1.0)
[2021-04-10] MEDS: THIAMINE HCL 100 MG TABLET (FP) PO SCH (22:08)
[2021-04-10] MEDS: QUEtiapine FUMARATE 400 MG TABLET PO SCH (22:08)
[2021-04-11] MEDS: QUEtiapine FUMARATE 100 MG TABLET (FP) PO SCH (06:51)
[2021-04-11] MEDS ORDERED: QUEtiapine FUMARATE 100 MG TABLET (FP) PO SCH (07:16)
[2021-04-11] MEDS: PANTOPRAZOLE 20 MG TABLET PO SCH (09:59)
[2021-04-11] MEDS: LURASIDONE HCL 20 MG TABLET PO SCH (09:59)
[2021-04-11] MEDS: PRENATAL VITAMINS W/ FOLIC ACID TABLET (FP) PO SCH (09:59)
[2021-04-11] MEDS: SERTRALINE HCL 50 MG TABLET (FP) PO SCH (09:59)
[2021-04-11] MEDS: QUEtiapine FUMARATE 400 MG TABLET PO SCH (21:59)
[2021-04-11] MEDS: THIAMINE HCL 100 MG TABLET (FP) PO SCH (21:59)
[2021-04-11] MEDS: IBUPROFEN 400 MG TABLET (FP) PO PRN (21:59)
[2021-04-12] MEDS: PRENATAL VITAMINS W/ FOLIC ACID TABLET (FP) PO SCH (10:51)
[2021-04-12] MEDS: LURASIDONE HCL 20 MG TABLET PO SCH (10:51)
[2021-04-12] MEDS: PANTOPRAZOLE 20 MG TABLET PO SCH (10:51)
[2021-04-12] MEDS: QUEtiapine FUMARATE 100 MG TABLET (FP) PO SCH (10:52)
[2021-04-12] MEDS: SERTRALINE HCL 50 MG TABLET (FP) PO SCH (10:52)
[2021-04-12] MEDS: ACETAMINOPHEN 325 MG TABLET (FP) PO PRN (21:32)
[2021-04-12] MEDS: QUEtiapine FUMARATE 400 MG TABLET PO SCH (21:32)
[2021-04-12] MEDS: THIAMINE HCL 100 MG TABLET (FP) PO SCH (21:32)
[2021-04-13] MEDS: PANTOPRAZOLE 20 MG TABLET PO SCH (10:04)
[2021-04-13] MEDS: QUEtiapine FUMARATE 100 MG TABLET (FP) PO SCH (10:04)
[2021-04-13] MEDS: SERTRALINE HCL 50 MG TABLET (FP) PO SCH (10:04)
[2021-04-13] MEDS: PRENATAL VITAMINS W/ FOLIC ACID TABLET (FP) PO SCH (10:04)
[2021-04-13] MEDS: LURASIDONE HCL 20 MG TABLET PO SCH (10:05)
[2021-04-13] MEDS: THIAMINE HCL 100 MG TABLET (FP) PO SCH (21:22)
[2021-04-13] MEDS: QUEtiapine FUMARATE 400 MG TABLET PO SCH (21:23)
[2021-04-14] MEDS: PANTOPRAZOLE 20 MG TABLET PO SCH (09:46)
[2021-04-14] MEDS: SERTRALINE HCL 50 MG TABLET (FP) PO SCH (09:46)
[2021-04-14] MEDS: PRENATAL VITAMINS W/ FOLIC ACID TABLET (FP) PO SCH (09:46)
[2021-04-14] MEDS: LURASIDONE HCL 20 MG TABLET PO SCH (09:47)
[2021-04-14] MEDS: QUEtiapine FUMARATE 100 MG TABLET (FP) PO SCH (09:47)
[2021-04-14] MEDS: QUEtiapine FUMARATE 400 MG TABLET PO SCH (21:31)
[2021-04-14] MEDS: THIAMINE HCL 100 MG TABLET (FP) PO SCH (21:31)
[2021-04-14] MEDS: IBUPROFEN 400 MG TABLET (FP) PO PRN (21:32)
[2021-04-15] MEDS: PRENATAL VITAMINS W/ FOLIC ACID TABLET (FP) PO SCH (10:07)
[2021-04-15] MEDS: QUEtiapine FUMARATE 100 MG TABLET (FP) PO SCH (10:08)
[2021-04-15] MEDS: SERTRALINE HCL 50 MG TABLET (FP) PO SCH (10:08)
[2021-04-15] MEDS: hydrOXYzine PAMOATE 25 MG CAPSULE (FP) PO PRN (10:08)
[2021-04-15] MEDS: LURASIDONE HCL 20 MG TABLET PO SCH (10:08)
[2021-04-15] MEDS: PANTOPRAZOLE 20 MG TABLET PO SCH (12:06)
[2021-04-15] MEDS: THIAMINE HCL 100 MG TABLET (FP) PO SCH (21:55)
[2021-04-15] MEDS: QUEtiapine FUMARATE 400 MG TABLET PO SCH (21:55)
[2021-04-16] MEDS: SERTRALINE HCL 50 MG TABLET (FP) PO SCH (09:57)
[2021-04-16] MEDS: QUEtiapine FUMARATE 100 MG TABLET (FP) PO SCH (09:57)
[2021-04-16] MEDS: PANTOPRAZOLE 20 MG TABLET PO SCH (09:57)
[2021-04-16] MEDS: PRENATAL VITAMINS W/ FOLIC ACID TABLET (FP) PO SCH (09:57)
[2021-04-16] MEDS: LURASIDONE HCL 20 MG TABLET PO SCH (09:57)
[2021-04-16] MEDS ORDERED: PANTOPRAZOLE 20 MG TABLET PO ONE (18:40)
[2021-04-16] MEDS: QUEtiapine FUMARATE 400 MG TABLET PO SCH (21:45)
[2021-04-16] MEDS: THIAMINE HCL 100 MG TABLET (FP) PO SCH (21:45)
[2021-04-16] MEDS: IBUPROFEN 400 MG TABLET (FP) PO PRN (21:46)
[2021-04-17 07:23] VITALS: TEMP 97.8
[2021-04-17] MEDS: LURASIDONE HCL 20 MG TABLET PO SCH (10:05)
[2021-04-17] MEDS: QUEtiapine FUMARATE 100 MG TABLET (FP) PO SCH (10:05)
[2021-04-17] MEDS: SERTRALINE HCL 50 MG TABLET (FP) PO SCH (10:05)
[2021-04-17] MEDS: ACETAMINOPHEN 325 MG TABLET (FP) PO PRN (10:06)
[2021-04-17] MEDS: PRENATAL VITAMINS W/ FOLIC ACID TABLET (FP) PO SCH (10:06)
[2021-04-17] MEDS: PANTOPRAZOLE 20 MG TABLET PO SCH (10:07)
[2021-04-17 11:28] VITALS: BP 155/87; PULSE 100
[2021-04-17] MEDS: QUEtiapine FUMARATE 400 MG TABLET PO SCH (21:39)
[2021-04-17] MEDS: IBUPROFEN 400 MG TABLET (FP) PO PRN (21:39)
[2021-04-17] MEDS: THIAMINE HCL 100 MG TABLET (FP) PO SCH (21:39)
[2021-04-18] MEDS: LURASIDONE HCL 20 MG TABLET PO SCH (10:10)
[2021-04-18] MEDS: PANTOPRAZOLE 20 MG TABLET PO SCH (10:10)
[2021-04-18] MEDS: PRENATAL VITAMINS W/ FOLIC ACID TABLET (FP) PO SCH (10:10)
[2021-04-18] MEDS: QUEtiapine FUMARATE 100 MG TABLET (FP) PO SCH (10:10)
[2021-04-18] MEDS: SERTRALINE HCL 50 MG TABLET (FP) PO SCH (10:10)
[2021-04-18] MEDS: QUEtiapine FUMARATE 400 MG TABLET PO SCH (21:25)
[2021-04-18] MEDS: THIAMINE HCL 100 MG TABLET (FP) PO SCH (21:25)
[2021-04-18] MEDS: ACETAMINOPHEN 325 MG TABLET (FP) PO PRN (21:28)
[2021-04-19] MEDS: QUEtiapine FUMARATE 100 MG TABLET (FP) PO SCH (10:01)
[2021-04-19] MEDS: PRENATAL VITAMINS W/ FOLIC ACID TABLET (FP) PO SCH (10:01)
[2021-04-19] MEDS: PANTOPRAZOLE 20 MG TABLET PO SCH (10:01)
[2021-04-19] MEDS: SERTRALINE HCL 50 MG TABLET (FP) PO SCH (10:01)
[2021-04-19] MEDS: LURASIDONE HCL 20 MG TABLET PO SCH (10:01)
[2021-04-19] MEDS: THIAMINE HCL 100 MG TABLET (FP) PO SCH (21:37)
[2021-04-19] MEDS: QUEtiapine FUMARATE 400 MG TABLET PO SCH (21:37)
[2021-04-19] MEDS: IBUPROFEN 400 MG TABLET (FP) PO PRN (21:38)
[2021-04-20] MEDS: LURASIDONE HCL 20 MG TABLET PO SCH (10:34)
[2021-04-20] MEDS: QUEtiapine FUMARATE 100 MG TABLET (FP) PO SCH (10:34)
[2021-04-20] MEDS: PRENATAL VITAMINS W/ FOLIC ACID TABLET (FP) PO SCH (10:34)
[2021-04-20] MEDS: PANTOPRAZOLE 20 MG TABLET PO SCH (10:34)
[2021-04-20] MEDS: SERTRALINE HCL 50 MG TABLET (FP) PO SCH (10:34)
[2021-04-20] MEDS: IBUPROFEN 400 MG TABLET (FP) PO PRN (17:17)
[2021-04-20] MEDS: THIAMINE HCL 100 MG TABLET (FP) PO SCH (21:33)
[2021-04-20] MEDS: QUEtiapine FUMARATE 400 MG TABLET PO SCH (21:33)
[2021-04-21] MEDS: PANTOPRAZOLE 20 MG TABLET PO SCH (10:28)
[2021-04-21] MEDS: SERTRALINE HCL 50 MG TABLET (FP) PO SCH (10:29)
[2021-04-21] MEDS: QUEtiapine FUMARATE 100 MG TABLET (FP) PO SCH (10:29)
[2021-04-21] MEDS: LURASIDONE HCL 20 MG TABLET PO SCH (10:29)
[2021-04-21] MEDS: PRENATAL VITAMINS W/ FOLIC ACID TABLET (FP) PO SCH (10:29)
[2021-04-21] MEDS: QUEtiapine FUMARATE 400 MG TABLET PO SCH (21:48)
[2021-04-21] MEDS: THIAMINE HCL 100 MG TABLET (FP) PO SCH (21:48)
[2021-04-22] MEDS: QUEtiapine FUMARATE 100 MG TABLET (FP) PO SCH (10:43)
[2021-04-22] MEDS: LURASIDONE HCL 20 MG TABLET PO SCH (10:43)
[2021-04-22] MEDS: SERTRALINE HCL 50 MG TABLET (FP) PO SCH (10:43)
[2021-04-22] MEDS: PRENATAL VITAMINS W/ FOLIC ACID TABLET (FP) PO SCH (10:43)
[2021-04-22] MEDS: PANTOPRAZOLE 20 MG TABLET PO SCH (10:43)
== END 2021-04-22 10:15 | disposition home or self-care (01) | DRG 772 ==
LOC: YASAS 00:43 → Y5N 02:52
PROVIDERS: ADMIT Allergy & Immunology; ATTEND Allergy & Immunology
PROC: HZ42ZZZ Group Counseling for Substance Abuse Treatment, Cognitive-Behavioral (ICD-10-PCS; principal; 2021-04-09)
DX: F10.20 Alcohol dependence, uncomplicated (principal); F12.20 Cannabis dependence, uncomplicated; F16.10 Hallucinogen abuse, uncomplicated; F17.210 Nicotine dependence, cigarettes, uncomplicated; F25.9 Schizoaffective disorder, unspecified; F43.10 Post-traumatic stress disorder, unspecified; K21.9 Gastro-esophageal reflux disease without esophagitis; K59.00 Constipation, unspecified; Z62.810 Personal history of physical and sexual abuse in childhood; Z91.410 Personal history of adult physical and sexual abuse; Z56.0 Unemployment, unspecified; Z59.0 Homelessness; Z91.018 Allergy to other foods
CPT/HCPCS: 36415; 80053; 81003; 85027; 86780; 87389; 93005; 93010

== ENCOUNTER 2021-05-31 16:22 | Emergency (ER) | payer OTHER ==
[2021-05-31 18:07] VITALS: BP 136/93; PULSE 108; TEMP 97.8; BMI 33.5
[2021-05-31 18:57] LABS: PH,URINE 5.5 (5.0-8.0); URINE APPEARANCE CLEAR; URINE BILIRUBIN NEGATIVE (NEGATIVE); URINE COLOR YELLOW; URINE GLUCOSE (UA) NEGATIVE (NEGATIVE); URINE KETONE NEGATIVE (NEGATIVE); URINE LEUK ESTERASE NEGATIVE (NEGATIVE); URINE NITRITE NEGATIVE (NEGATIVE); URINE PROTEIN NEGATIVE (NEGATIVE); URINE UROBILINOGEN 0.2 mg/dL (0.2-1.0)
[2021-05-31 19:05] LABS: COCAINE, UR NEGATIVE (NEGATIVE); URINE AMPHETAMINES NEGATIVE (NEGATIVE); URINE BARBITURATES NEGATIVE (NEGATIVE); URINE BENZODIAZEPINES NEGATIVE (NEGATIVE)
[2021-05-31 19:06] LABS: METHADONE, UR NEGATIVE (NEGATIVE); OPIATES, URI NEGATIVE (NEGATIVE)
[2021-05-31 19:17] LABS: PHENCYCLIDINE,URINE POSITIVE (NEGATIVE)
[2021-05-31 19:24] LABS: BASO % 0.8 % (0-2.0); EOS % 1.1 % (0-4.5); HEMATOCRIT 38.6 % (35.4-49); HEMOGLOBIN 12.7 GM/dL (11.7-16.9); MCH 25.4 pg (25.7-33.7); MCHC 32.9 g/dl (32.0-35.9); MEAN CELL VOLUME 77.2 fl (80-96); MEAN PLT VOLUME 8.7 fl (7.5-11.1); MONO % 3.2 % (3.8-10.2); NEUT % 77.9 % (42.8-82.8); PLATELET COUNT 307 10^3/uL (134-434); RDW 15.5 % (11.9-15.9); WHITE BLOOD COUNT 8.3 K/mm3 (4.0-10.0)
[2021-05-31 19:41] LABS: CHLORIDE 106 mmol/L (98-107); SODIUM 140 mmol/L (136-145)
[2021-05-31 19:43] LABS: CALCIUM 9.2 mg/dL (8.5-10.1)
[2021-05-31 19:44] LABS: ALBUMIN 3.9 g/dl (3.4-5.0); ANION GAP 6 MMOL/L (8-16); BLOOD UREA NITROGEN 11.4 mg/dL (7-18); CO2 28 mmol/L (21-32); GLUCOSE,RANDOM 84 mg/dL (74-106)
[2021-05-31 19:47] LABS: CREATININE 1.2 mg/dL (0.55-1.3); SGOT/AST 33 U/L (15-37); SGPT/ALT 58 U/L (13-61)
[2021-05-31 19:49] LABS: BILIRUBIN,TOTAL 0.3 mg/dL (0.2-1); TOT PROT 8.5 g/dl (6.4-8.2)
[2021-05-31 19:50] LABS: ALK PHOS 147 U/L (45-117)
== END 2021-05-31 20:20 | disposition left against medical advice (07) ==
LOC: JER 16:22
DX: R41.82 Altered mental status, unspecified (principal)
CPT/HCPCS: 36415; 71045-TC-FY; 80053; 80307; 81003; 82550; 82553; 84484; 85025; 93005; 93010; 99284-25

== ENCOUNTER 2021-06-21 19:07 | Inpatient (IN) | payer OTHER ==
[2021-06-21 21:12] VITALS: BMI 33.5
[2021-06-21] MEDS ORDERED: MELATONIN 5 MG TABLETS PO SCH (22:00)
[2021-06-21] MEDS ORDERED: P-EPHED 60MG/TRIPROLIDI 2.5MG TABLET PO PRN (22:33)
[2021-06-21] MEDS ORDERED: ACETAMINOPHEN 325 MG TABLET (FP) PO PRN (22:33)
[2021-06-21] MEDS ORDERED: MAG HYDROX/AL HYDROX/SIMETH 30 ML UNIT-DOSE CUP PO PRN (22:33)
[2021-06-21] MEDS ORDERED: MAGNESIUM HYDROX 2400MG/30ML ORAL SUSPENSION 30 ML CUP PO PRN (22:33)
[2021-06-21] MEDS ORDERED: guaiFENesin 200 MG/10 ML 10 ML UNIT-DOSE CUPS PO PRN (22:33)
[2021-06-21] MEDS ORDERED: IBUPROFEN 400 MG TABLET (FP) PO PRN (22:33)
[2021-06-21] MEDS ORDERED: NICOTINE POLACRILEX 2 MG GUM BC PRN (22:33)
[2021-06-21] MEDS ORDERED: LOPERAMIDE HCL 2 MG CAPSULE PO PRN (22:33)
[2021-06-21] MEDS ORDERED: MAGNESIUM CITRATE 300 ML BOTTLE PO PRN (22:33)
[2021-06-21] MEDS ORDERED: IBUPROFEN 600 MG TABLET (FP) PO PRN (22:58)
[2021-06-21] MEDS ORDERED: TRIMETHOBENZAMIDE HCL 200MG/2ML INJ IM ONE (23:08)
[2021-06-21] MEDS ORDERED: ONDANSETRON *ODT* 4 MG TABLET SL ONE (23:20)
[2021-06-21] MEDS ORDERED: ONDANSETRON *ODT* 4 MG TABLET ONE (23:20)
[2021-06-21] MEDS ORDERED: IBUPROFEN 400 MG TABLET (FP) PO ONE ×2 (23:26→23:41)
[2021-06-21] MEDS ORDERED: METHOCARBAMOL 500 MG TABLET ONE (23:41)
[2021-06-21] MEDS ORDERED: METHOCARBAMOL 500 MG TABLET PO ONE (23:58)
[2021-06-22] MEDS ORDERED: TUBERCULIN PPD 5 TU/0.1ML VIAL ID ONE (02:31)
[2021-06-22 03:58] VITALS: TEMP 99
[2021-06-22] MEDS: METHOCARBAMOL 500 MG TABLET PO SCH ×2 (06:33→13:37)
[2021-06-22] MEDS ORDERED: PRENATAL VITAMINS W/ FOLIC ACID TABLET (FP) PO SCH (10:00)
[2021-06-22 12:18] LABS: HEMATOCRIT 41.7 % (35.4-49); HEMOGLOBIN 13.8 GM/dL (11.7-16.9); MCH 25.3 pg (25.7-33.7); MEAN CELL VOLUME 76.5 fl (80-96); MEAN PLT VOLUME 8.4 fl (7.5-11.1); PLATELET COUNT 333 10^3/uL (134-434); RBC 5.46 M/mm3 (4.00-5.60); WHITE BLOOD COUNT 10.8 K/mm3 (4.0-10.0)
[2021-06-22 12:31] LABS: ALBUMIN 4.2 g/dl (3.4-5.0); BLOOD UREA NITROGEN 17.4 mg/dL (7-18); CALCIUM 9.3 mg/dL (8.5-10.1)
[2021-06-22 12:34] LABS: BILIRUBIN,TOTAL 0.6 mg/dL (0.2-1)
[2021-06-22 12:35] LABS: CREATININE 1.2 mg/dL (0.55-1.3)
[2021-06-22 12:54] LABS: SYPHILIS W/ RPR CONF NON-REACTIVE (NONREACTIVE)
[2021-06-22] MEDS ORDERED: PANTOPRAZOLE 20 MG TABLET PO SCH (13:00)
[2021-06-22 18:03] VITALS: BP 135/93; PULSE 95
[2021-06-22] MEDS ORDERED: THIAMINE HCL 100 MG TABLET (FP) PO SCH (22:00)
[2021-06-22] MEDS ORDERED: QUEtiapine FUMARATE 400 MG TABLET PO SCH (22:00)
[2021-06-22] MEDS ORDERED: APIXABAN 5 MG TABLET PO SCH (22:00)
[2021-06-23] MEDS ORDERED: QUEtiapine FUMARATE 100 MG TABLET (FP) PO SCH (07:00)
[2021-06-23] MEDS ORDERED: SERTRALINE HCL 50 MG TABLET (FP) PO SCH (10:00)
[2021-06-23] MEDS ORDERED: LURASIDONE HCL 20 MG TABLET PO SCH (12:00)
== END 2021-06-22 19:20 | disposition home or self-care (01) | DRG 775 ==
LOC: YASAS 19:07 → Y3W 06-22 01:40
PROVIDERS: ADMIT Allergy & Immunology; ATTEND Allergy & Immunology
PROC: HZ2ZZZZ Detoxification Services for Substance Abuse Treatment (ICD-10-PCS; principal; 2021-06-22)
DX: F10.20 Alcohol dependence, uncomplicated (principal); F16.20 Hallucinogen dependence, uncomplicated; F12.20 Cannabis dependence, uncomplicated; F17.210 Nicotine dependence, cigarettes, uncomplicated; F20.9 Schizophrenia, unspecified; F31.9 Bipolar disorder, unspecified; F19.24 Other psychoactive substance dependence with psychoactive substance-induced mood disorder; I10 Essential (primary) hypertension; K21.9 Gastro-esophageal reflux disease without esophagitis; K29.20 Alcoholic gastritis without bleeding; Z86.79 Personal history of other diseases of the circulatory system; Z87.81 Personal history of (healed) traumatic fracture; Z86.718 Personal history of other venous thrombosis and embolism; Z79.01 Long term (current) use of anticoagulants
CPT/HCPCS: 36415; 80053; 85027; 86780; 86803; 93005; 93010; C9803; Q0162; U0003; U0005

== ENCOUNTER 2021-08-24 01:46 | Inpatient (IN) | payer OTHER ==
[2021-08-24 02:42] VITALS: BMI 32.1
[2021-08-24] MEDS ORDERED: P-EPHED 60MG/TRIPROLIDI 2.5MG TABLET PO PRN (04:41)
[2021-08-24] MEDS ORDERED: MAGNESIUM CITRATE 300 ML BOTTLE PO PRN (04:41)
[2021-08-24] MEDS ORDERED: MAG HYDROX/AL HYDROX/SIMETH 30 ML UNIT-DOSE CUP PO PRN (04:41)
[2021-08-24] MEDS ORDERED: IBUPROFEN 400 MG TABLET (FP) PO PRN (04:41)
[2021-08-24] MEDS ORDERED: LOPERAMIDE HCL 2 MG CAPSULE PO PRN (04:41)
[2021-08-24] MEDS ORDERED: MAGNESIUM HYDROX 2400MG/30ML ORAL SUSPENSION 30 ML CUP PO PRN (04:41)
[2021-08-24] MEDS ORDERED: hydrOXYzine PAMOATE 25 MG CAPSULE (FP) PO PRN (04:41)
[2021-08-24] MEDS ORDERED: NICOTINE 10 MG CARTRIDGE (INHALER) IH PRN (04:41)
[2021-08-24] MEDS ORDERED: guaiFENesin 200 MG/10 ML 10 ML UNIT-DOSE CUPS PO PRN (04:41)
[2021-08-24 10:38] LABS: HEMATOCRIT 37.8 % (35.4-49); HEMOGLOBIN 12.2 GM/dL (11.7-16.9); MCH 24.7 pg (25.7-33.7); MCHC 32.3 g/dl (32.0-35.9); MEAN CELL VOLUME 76.3 fl (80-96); MEAN PLT VOLUME 8.9 fl (7.5-11.1); PLATELET COUNT 272 10^3/uL (134-434); RBC 4.95 M/mm3 (4.00-5.60); RDW 15.5 % (11.9-15.9); WHITE BLOOD COUNT 10.3 K/mm3 (4.0-10.0)
[2021-08-24 10:44] LABS: CALCIUM 8.7 mg/dL (8.5-10.1)
[2021-08-24 10:45] LABS: ALBUMIN 3.5 g/dl (3.4-5.0); BLOOD UREA NITROGEN 14.9 mg/dL (7-18)
[2021-08-24 10:47] LABS: CREATININE 1.1 mg/dL (0.55-1.3)
[2021-08-24 10:48] LABS: BILIRUBIN,TOTAL 0.8 mg/dL (0.2-1); TOT PROT 7.5 g/dl (6.4-8.2)
[2021-08-24] MEDS: PANTOPRAZOLE 20 MG TABLET PO SCH (12:07)
[2021-08-24] MEDS: APIXABAN 5 MG TABLET PO SCH ×2 (12:07→21:40)
[2021-08-24] MEDS: PRENATAL VITAMINS W/ FOLIC ACID TABLET (FP) PO SCH (12:07)
[2021-08-24] MEDS: NICOTINE 14 MG/24 HOURS TOPICAL PATCH TD SCH (12:11)
[2021-08-24] MEDS: ACETAMINOPHEN 325 MG TABLET (FP) PO PRN ×2 (17:48→22:10)
[2021-08-24] MEDS: THIAMINE HCL 100 MG TABLET (FP) PO SCH (21:40)
[2021-08-24] MEDS: QUEtiapine FUMARATE 300 MG TABLET PO SCH (21:40)
[2021-08-24] MEDS: MELATONIN 5 MG TABLETS PO SCH (21:40)
[2021-08-25] MEDS ORDERED: PT OWN MED DRAWER 7, Y5N ONE ×3 (08:47→19:22)
[2021-08-25] MEDS: PRENATAL VITAMINS W/ FOLIC ACID TABLET (FP) PO SCH (09:58)
[2021-08-25] MEDS: APIXABAN 5 MG TABLET PO SCH ×2 (09:59→21:16)
[2021-08-25] MEDS: ACETAMINOPHEN 325 MG TABLET (FP) PO PRN (09:59)
[2021-08-25] MEDS: PANTOPRAZOLE 20 MG TABLET PO SCH (09:59)
[2021-08-25] MEDS: NICOTINE 14 MG/24 HOURS TOPICAL PATCH TD SCH (10:01)
[2021-08-25] MEDS: LURASIDONE HCL 20 MG TABLET PO SCH (10:02)
[2021-08-25] MEDS: QUEtiapine FUMARATE 300 MG TABLET PO SCH (21:16)
[2021-08-25] MEDS: MELATONIN 5 MG TABLETS PO SCH (21:16)
[2021-08-25] MEDS: THIAMINE HCL 100 MG TABLET (FP) PO SCH (21:17)
[2021-08-26] MEDS: APIXABAN 5 MG TABLET PO SCH ×2 (09:45→21:08)
[2021-08-26] MEDS: PRENATAL VITAMINS W/ FOLIC ACID TABLET (FP) PO SCH (09:45)
[2021-08-26] MEDS: PANTOPRAZOLE 20 MG TABLET PO SCH (09:45)
[2021-08-26] MEDS: ACETAMINOPHEN 325 MG TABLET (FP) PO PRN ×2 (09:46→19:02)
[2021-08-26] MEDS: NICOTINE 14 MG/24 HOURS TOPICAL PATCH TD SCH (09:49)
[2021-08-26] MEDS ORDERED: COLLOIDAL OATMEAL 1 BAR EACH TP PRN (09:57)
[2021-08-26] MEDS: LURASIDONE HCL 20 MG TABLET PO SCH (11:11)
[2021-08-26] MEDS: MELATONIN 5 MG TABLETS PO SCH (21:07)
[2021-08-26] MEDS: THIAMINE HCL 100 MG TABLET (FP) PO SCH (21:08)
[2021-08-26] MEDS: QUEtiapine FUMARATE 300 MG TABLET PO SCH (21:08)
[2021-08-27] MEDS: ACETAMINOPHEN 325 MG TABLET (FP) PO PRN ×3 (02:53→21:12)
[2021-08-27] MEDS: PRENATAL VITAMINS W/ FOLIC ACID TABLET (FP) PO SCH (09:45)
[2021-08-27] MEDS: PANTOPRAZOLE 20 MG TABLET PO SCH (09:45)
[2021-08-27] MEDS: NICOTINE 14 MG/24 HOURS TOPICAL PATCH TD SCH (09:46)
[2021-08-27] MEDS: APIXABAN 5 MG TABLET PO SCH ×2 (09:46→21:11)
[2021-08-27] MEDS: LURASIDONE HCL 20 MG TABLET PO SCH (09:46)
[2021-08-27] MEDS: QUEtiapine FUMARATE 300 MG TABLET PO SCH (21:11)
[2021-08-27] MEDS: THIAMINE HCL 100 MG TABLET (FP) PO SCH (21:11)
[2021-08-27] MEDS: MELATONIN 5 MG TABLETS PO SCH (21:12)
[2021-08-28] MEDS: PRENATAL VITAMINS W/ FOLIC ACID TABLET (FP) PO SCH (09:50)
[2021-08-28] MEDS: LURASIDONE HCL 20 MG TABLET PO SCH (09:51)
[2021-08-28] MEDS: APIXABAN 5 MG TABLET PO SCH ×2 (09:51→21:27)
[2021-08-28] MEDS: PANTOPRAZOLE 20 MG TABLET PO SCH (09:51)
[2021-08-28] MEDS: ACETAMINOPHEN 325 MG TABLET (FP) PO PRN ×2 (09:52→21:28)
[2021-08-28] MEDS: NICOTINE 14 MG/24 HOURS TOPICAL PATCH TD SCH (10:31)
[2021-08-28] MEDS: LIDOCAINE 5% TOPICAL PATCH TP SCH (14:53)
[2021-08-28] MEDS: THIAMINE HCL 100 MG TABLET (FP) PO SCH (21:27)
[2021-08-28] MEDS: QUEtiapine FUMARATE 300 MG TABLET PO SCH (21:27)
[2021-08-28] MEDS: MELATONIN 5 MG TABLETS PO SCH (21:27)
[2021-08-28] MEDS ORDERED: LIDOCAINE PATCH REMOVAL MC SCH (22:00)
[2021-08-29] MEDS: APIXABAN 5 MG TABLET PO SCH (10:16)
[2021-08-29] MEDS: LIDOCAINE 5% TOPICAL PATCH TP SCH (10:16)
[2021-08-29] MEDS: PANTOPRAZOLE 20 MG TABLET PO SCH (10:16)
[2021-08-29] MEDS: PRENATAL VITAMINS W/ FOLIC ACID TABLET (FP) PO SCH (10:16)
[2021-08-29 10:22] VITALS: PULSE 84
[2021-08-29] MEDS: NICOTINE 14 MG/24 HOURS TOPICAL PATCH TD SCH (10:28)
[2021-08-29] MEDS: LURASIDONE HCL 20 MG TABLET PO SCH (10:28)
[2021-08-29 17:32] VITALS: BP 137/84; TEMP 96.1
== END 2021-08-29 17:50 | disposition home or self-care (01) | DRG 772 ==
LOC: YASAS 01:46 → Y5N 04:27
PROVIDERS: ADMIT Allergy & Immunology; ATTEND Allergy & Immunology
PROC: HZ42ZZZ Group Counseling for Substance Abuse Treatment, Cognitive-Behavioral (ICD-10-PCS; principal; 2021-08-24)
DX: F10.20 Alcohol dependence, uncomplicated (principal); F16.20 Hallucinogen dependence, uncomplicated; F12.20 Cannabis dependence, uncomplicated; F17.210 Nicotine dependence, cigarettes, uncomplicated; F25.9 Schizoaffective disorder, unspecified; F31.9 Bipolar disorder, unspecified; F41.9 Anxiety disorder, unspecified; F43.10 Post-traumatic stress disorder, unspecified; F19.24 Other psychoactive substance dependence with psychoactive substance-induced mood disorder; I10 Essential (primary) hypertension; Z86.79 Personal history of other diseases of the circulatory system; Z86.718 Personal history of other venous thrombosis and embolism; Z79.01 Long term (current) use of anticoagulants; Z99.89 Dependence on other enabling machines and devices; Z59.00 Homelessness unspecified
CPT/HCPCS: 36415; 80053; 85027; 86780; 86803; 93005; 93010; C9803; U0003; U0005

== ENCOUNTER 2021-09-05 00:01 | Emergency (ER) | payer OTHER ==
[2021-09-05 02:39] VITALS: BP 114/76; PULSE 100; TEMP 98.1; BMI 34.4
[2021-09-05] MEDS ORDERED: ACETAMINOPHEN 1000 MG/100 ML BAG IVPB ONE (03:22)
[2021-09-05] MEDS ORDERED: SODIUM CHLORIDE 0.9% 500 ML INFUS.BAG IV ONE (03:22)
[2021-09-05] MEDS ORDERED: ACETAMINOPHEN INJECTION 100 ML IVPB ONE (03:34)
[2021-09-05] MEDS ORDERED: ACETAMINOPHEN 500 MG TABLET (FP) PO ONE (04:34)
[2021-09-05] MEDS ORDERED: ACETAMINOPHEN 500 MG TABLET (FP) ONE (04:41)
== END 2021-09-05 05:32 | disposition home or self-care (01) ==
LOC: JER 00:01
PROC: 3E033NZ Introduction of Analgesics, Hypnotics, Sedatives into Peripheral Vein, Percutaneous Approach (ICD-10-PCS; principal; 2021-09-05)
DX: M25.571 Pain in right ankle and joints of right foot (principal); K46.9 Unspecified abdominal hernia without obstruction or gangrene
CPT/HCPCS: 73610-TC-RT-FY; 73630-TC-RT-FY; 74021-TC-FY; 93005; 93010; 99285-25

== ENCOUNTER 2021-10-08 19:23 | Inpatient (IN) | payer OTHER ==
[2021-10-08] MEDS ORDERED: ACETAMINOPHEN 325 MG TABLET (FP) PO PRN ×2 (23:48)
[2021-10-08] MEDS ORDERED: IBUPROFEN 400 MG TABLET (FP) PO PRN (23:48)
[2021-10-08] MEDS ORDERED: BISMUTH SUBSALICYLATE 524 MG/30 ML PO PRN (23:48)
[2021-10-08] MEDS ORDERED: MAGNESIUM CITRATE 300 ML BOTTLE PO PRN (23:48)
[2021-10-08] MEDS ORDERED: MENTHOL/PHENOL 1 EACH UD MM PRN (23:48)
[2021-10-08] MEDS ORDERED: MAG HYDROX/AL HYDROX/SIMETH 30 ML UNIT-DOSE CUP PO PRN (23:48)
[2021-10-08] MEDS ORDERED: MAGNESIUM HYDROX 2400MG/30ML ORAL SUSPENSION 30 ML CUP PO PRN (23:48)
[2021-10-08] MEDS ORDERED: ONDANSETRON *ODT* 4 MG TABLET SL PRN (23:48)
[2021-10-08] MEDS ORDERED: NICOTINE POLACRILEX 2 MG GUM BUC PRN (23:48)
[2021-10-09] MEDS ORDERED: chlordiazePOXIDE HCL 25 MG CAPSULE PO PRN (00:07)
[2021-10-09] MEDS ORDERED: ACETAMINOPHEN 325 MG TABLET (FP) ONE (03:52)
[2021-10-09 05:21] VITALS: BMI 31.5
[2021-10-09] MEDS ORDERED: chlordiazePOXIDE HCL 25 MG CAPSULE ONE (05:41)
[2021-10-09] MEDS: chlordiazePOXIDE HCL 25 MG CAPSULE PO SCH ×4 (05:47→22:06)
[2021-10-09] MEDS ORDERED: METHOCARBAMOL 750 MG TAB PO ONE (09:45)
[2021-10-09 10:20] LABS: HEMATOCRIT 38.3 % (35.4-49); HEMOGLOBIN 12.2 GM/dL (11.7-16.9); MCH 24.2 pg (25.7-33.7); MCHC 31.8 g/dl (32.0-35.9); MEAN PLT VOLUME 8.8 fl (7.5-11.1); PLATELET COUNT 286 10^3/uL (134-434); RBC 5.04 M/mm3 (4.00-5.60); WHITE BLOOD COUNT 7.9 K/mm3 (4.0-10.0)
[2021-10-09 10:25] LABS: BLOOD UREA NITROGEN 8.9 mg/dL (7-18); CALCIUM 8.9 mg/dL (8.5-10.1)
[2021-10-09 10:28] LABS: CREATININE 1.1 mg/dL (0.55-1.3)
[2021-10-09 10:29] LABS: TOT PROT 8.1 g/dl (6.4-8.2)
[2021-10-09 10:30] LABS: BILIRUBIN,TOTAL 0.5 mg/dL (0.2-1)
[2021-10-09] MEDS: PRENATAL VITAMINS W/ FOLIC ACID TABLET (FP) PO SCH (10:34)
[2021-10-09] MEDS: NICOTINE 14 MG/24 HOURS TOPICAL PATCH TD SCH (10:34)
[2021-10-09 11:16] LABS: HIV INTERPRETATION NEGATIVE (NEGATIVE)
[2021-10-09] MEDS: METHOCARBAMOL 500 MG TABLET PO PRN (17:56)
[2021-10-09] MEDS ORDERED: MELATONIN 5 MG TABLETS PO SCH (22:00)
[2021-10-09] MEDS ORDERED: GABAPENTIN 300 MG CAPSULE PO SCH (22:00)
[2021-10-09] MEDS ORDERED: QUEtiapine FUMARATE 100 MG TABLET (FP) PO SCH (22:00)
[2021-10-09] MEDS ORDERED: QUEtiapine FUMARATE 200 MG TABLET PO SCH (22:00)
[2021-10-09] MEDS ORDERED: THIAMINE HCL 100 MG TABLET (FP) PO SCH (22:00)
[2021-10-10] MEDS: chlordiazePOXIDE HCL 25 MG CAPSULE PO SCH ×2 (07:01→10:13)
[2021-10-10] MEDS ORDERED: LURASIDONE HCL 20 MG TABLET PO SCH (10:00)
[2021-10-10] MEDS ORDERED: LURASIDONE HCL 40 MG TABLET PO SCH (10:00)
[2021-10-10] MEDS ORDERED: QUEtiapine FUMARATE 100 MG TABLET (FP) PO SCH (10:00)
[2021-10-10] MEDS: PRENATAL VITAMINS W/ FOLIC ACID TABLET (FP) PO SCH (10:12)
[2021-10-10] MEDS: METHOCARBAMOL 500 MG TABLET PO PRN (10:14)
[2021-10-10] MEDS: NICOTINE 14 MG/24 HOURS TOPICAL PATCH TD SCH (10:15)
[2021-10-10] MEDS ORDERED: SERTRALINE HCL 25 MG TABLET (FP) PO SCH (11:15)
[2021-10-10 14:20] VITALS: BP 113/63; PULSE 96; TEMP 98
[2021-10-11] MEDS ORDERED: chlordiazePOXIDE HCL 10 MG CAPSULE PO PRN
[2021-10-11] MEDS ORDERED: chlordiazePOXIDE HCL 10 MG CAPSULE PO SCH (05:00)
[2021-10-12] MEDS ORDERED: chlordiazePOXIDE HCL 10 MG CAPSULE PO SCH (05:00)
[2021-10-13] MEDS ORDERED: chlordiazePOXIDE HCL 10 MG CAPSULE PO ONE (05:00)
== END 2021-10-10 12:58 | disposition left against medical advice (07) | DRG 770 ==
LOC: YASAS 19:23 → Y6N 10-09 02:33
PROVIDERS: ADMIT Allergy & Immunology; ATTEND Allergy & Immunology
PROC: HZ2ZZZZ Detoxification Services for Substance Abuse Treatment (ICD-10-PCS; principal; 2021-10-09)
DX: F10.230 Alcohol dependence with withdrawal, uncomplicated (principal); F16.20 Hallucinogen dependence, uncomplicated; F12.20 Cannabis dependence, uncomplicated; F17.213 Nicotine dependence, cigarettes, with withdrawal; F25.9 Schizoaffective disorder, unspecified; F32.A Depression, unspecified; F41.8 Other specified anxiety disorders; I10 Essential (primary) hypertension; K21.9 Gastro-esophageal reflux disease without esophagitis; Z86.79 Personal history of other diseases of the circulatory system; Z56.0 Unemployment, unspecified; Z59.00 Homelessness unspecified
CPT/HCPCS: 36415; 80053; 85027; 86780; 87389; C9803; U0003; U0005

== ENCOUNTER 2021-11-12 20:44 | Emergency (ER) | payer OTHER ==
[2021-11-12 21:05] VITALS: BP 113/62; PULSE 88; TEMP 98.8; BMI 38.3
[2021-11-12 22:09] LABS: HEMATOCRIT 38.1 % (35.4-49); HEMOGLOBIN 12.1 GM/dL (11.7-16.9); MCH 24.2 pg (25.7-33.7); MCHC 31.8 g/dl (32.0-35.9); MEAN CELL VOLUME 76.1 fl (80-96); MEAN PLT VOLUME 8.6 fl (7.5-11.1); PLATELET COUNT 220 10^3/uL (134-434); RBC 5.01 M/mm3 (4.00-5.60); RDW 17.1 % (11.9-15.9); WHITE BLOOD COUNT 7.2 K/mm3 (4.0-10.0)
[2021-11-12 22:16] LABS: LYMPH % 15.9 % (8-40); MONO % 5.6 % (3.8-10.2); NEUT % 76.9 % (42.8-82.8)
[2021-11-12 22:17] LABS: BASO % 0.6 % (0-2.0)
[2021-11-12 22:38] LABS: CHLORIDE 105 mmol/L (98-107); SODIUM 139 mmol/L (136-145)
[2021-11-12 22:43] LABS: CALCIUM 9.4 mg/dL (8.5-10.1)
[2021-11-12 22:44] LABS: ALBUMIN 4.2 g/dl (3.4-5.0); ANION GAP 6 MMOL/L (8-16); BLOOD UREA NITROGEN 11.7 mg/dL (7-18); CO2 29 mmol/L (21-32); GLUCOSE,RANDOM 95 mg/dL (74-106)
[2021-11-12 22:47] LABS: CREATININE 1.2 mg/dL (0.55-1.3); SGOT/AST 27 U/L (15-37); SGPT/ALT 32 U/L (13-61)
[2021-11-12 22:48] LABS: BILIRUBIN,TOTAL 0.4 mg/dL (0.2-1); TOT PROT 8.2 g/dl (6.4-8.2)
[2021-11-12 22:50] LABS: ALK PHOS 123 U/L (45-117)
== END 2021-11-13 02:28 | disposition home or self-care (01) ==
LOC: JER 20:44
DX: F19.10 Other psychoactive substance abuse, uncomplicated (principal)
CPT/HCPCS: 36415; 70450-TC; 72125-TC; 80053; 80307; 85025; 93005; 93010; 99285-25

== ENCOUNTER 2021-11-13 02:57 | Inpatient (IN) | payer OTHER ==
[2021-11-13] MEDS ORDERED: IBUPROFEN 400 MG TABLET (FP) PO PRN (03:24)
[2021-11-13] MEDS ORDERED: guaiFENesin 200 MG/10 ML 10 ML UNIT-DOSE CUPS PO PRN (03:24)
[2021-11-13] MEDS ORDERED: METHOCARBAMOL 500 MG TABLET PO PRN (03:24)
[2021-11-13] MEDS ORDERED: BISMUTH SUBSALICYLATE 524 MG/30 ML PO PRN (03:24)
[2021-11-13] MEDS ORDERED: MAGNESIUM HYDROX 2400MG/30ML ORAL SUSPENSION 30 ML CUP PO PRN (03:24)
[2021-11-13] MEDS ORDERED: MAG HYDROX/AL HYDROX/SIMETH 30 ML UNIT-DOSE CUP PO PRN (03:24)
[2021-11-13] MEDS ORDERED: LOPERAMIDE HCL 2 MG CAPSULE PO PRN (03:24)
[2021-11-13] MEDS ORDERED: MENTHOL/PHENOL 1 EACH UD MM PRN (03:24)
[2021-11-13] MEDS ORDERED: ONDANSETRON *ODT* 4 MG TABLET SL PRN (03:24)
[2021-11-13] MEDS ORDERED: NICOTINE POLACRILEX 2 MG GUM BUC PRN (03:24)
[2021-11-13] MEDS ORDERED: hydrOXYzine PAMOATE 25 MG CAPSULE (FP) PO PRN (03:24)
[2021-11-13] MEDS ORDERED: ACETAMINOPHEN 325 MG TABLET (FP) PO PRN ×2 (03:24)
[2021-11-13] MEDS ORDERED: DICYCLOMINE HCL 10 MG CAPSULE PO PRN (03:24)
[2021-11-13] MEDS ORDERED: P-EPHED 60MG/TRIPROLIDI 2.5MG TABLET PO PRN (03:24)
[2021-11-13] MEDS ORDERED: MAGNESIUM CITRATE 300 ML BOTTLE PO PRN (03:24)
[2021-11-13 03:33] VITALS: BMI 30.7
[2021-11-13 08:43] VITALS: BP 108/70; PULSE 90; TEMP 96.9
[2021-11-13] MEDS ORDERED: PRENATAL VITAMINS W/ FOLIC ACID TABLET (FP) PO SCH (10:00)
[2021-11-13] MEDS ORDERED: NICOTINE 14 MG/24 HOURS TOPICAL PATCH TD SCH (10:00)
[2021-11-13 12:51] LABS: HIV INTERPRETATION NEGATIVE (NEGATIVE)
[2021-11-13] MEDS ORDERED: THIAMINE HCL 100 MG TABLET (FP) PO SCH (22:00)
[2021-11-13] MEDS ORDERED: MELATONIN 5 MG TABLETS PO SCH (22:00)
== END 2021-11-13 12:08 | disposition home or self-care (01) | DRG 775 ==
LOC: YASAS 02:57 → Y3N 03:45
PROVIDERS: ADMIT Allergy & Immunology; ATTEND Allergy & Immunology
PROC: HZ2ZZZZ Detoxification Services for Substance Abuse Treatment (ICD-10-PCS; principal; 2021-11-13)
DX: F10.230 Alcohol dependence with withdrawal, uncomplicated (principal); F12.20 Cannabis dependence, uncomplicated; F17.210 Nicotine dependence, cigarettes, uncomplicated; R00.0 Tachycardia, unspecified; W01.10XA Fall on same level from slipping, tripping and stumbling with subsequent striking against unspecified object, initial encounter; Y93.9 Activity, unspecified; Y92.239 Unspecified place in hospital as the place of occurrence of the external cause; Z59.00 Homelessness unspecified
CPT/HCPCS: 36415; 86780; 87389; 87811; C9803; U0003; U0005

== ENCOUNTER 2021-11-30 17:30 | Inpatient (IN) | payer OTHER ==
[2021-11-30 18:55] VITALS: BMI 40.6
[2021-11-30] MEDS ORDERED: ACETAMINOPHEN 325 MG TABLET (FP) PO PRN (19:00)
[2021-11-30] MEDS ORDERED: P-EPHED 60MG/TRIPROLIDI 2.5MG TABLET PO PRN (19:00)
[2021-11-30] MEDS ORDERED: LOPERAMIDE HCL 2 MG CAPSULE PO PRN (19:00)
[2021-11-30] MEDS ORDERED: MAG HYDROX/AL HYDROX/SIMETH 30 ML UNIT-DOSE CUP PO PRN (19:00)
[2021-11-30] MEDS ORDERED: IBUPROFEN 400 MG TABLET (FP) PO PRN (19:00)
[2021-11-30] MEDS ORDERED: MELATONIN 5 MG TABLETS PO PRN (19:00)
[2021-11-30] MEDS ORDERED: MAGNESIUM HYDROX 2400MG/30ML ORAL SUSPENSION 30 ML CUP PO PRN (19:00)
[2021-11-30] MEDS ORDERED: MAGNESIUM CITRATE 300 ML BOTTLE PO PRN (19:00)
[2021-11-30] MEDS ORDERED: guaiFENesin 200 MG/10 ML 10 ML UNIT-DOSE CUPS PO PRN (19:00)
[2021-11-30] MEDS ORDERED: hydrOXYzine PAMOATE 25 MG CAPSULE (FP) PO PRN (19:00)
[2021-11-30] MEDS ORDERED: MENTHOL/PHENOL 1 EACH UD MM PRN (19:00)
[2021-11-30] MEDS ORDERED: LIDOCAINE 5% TOPICAL PATCH TP ONE (19:03)
[2021-11-30 21:10] VITALS: BP 135/88; PULSE 96; TEMP 98.6
[2021-11-30] MEDS ORDERED: LIDOCAINE PATCH REMOVAL MC SCH (22:00)
[2021-11-30] MEDS ORDERED: THIAMINE HCL 100 MG TABLET (FP) PO SCH (22:00)
[2021-11-30] MEDS: PANTOPRAZOLE 20 MG TABLET PO SCH (22:58)
[2021-12-01] MEDS ORDERED: PRENATAL VITAMINS W/ FOLIC ACID TABLET (FP) PO SCH (10:00)
[2021-12-01] MEDS: PANTOPRAZOLE 20 MG TABLET PO SCH (10:52)
== END 2021-12-01 15:50 | disposition left against medical advice (07) | DRG 770 ==
LOC: YASAS 17:30 → Y3W 20:25 → Y5N 23:16
PROVIDERS: ADMIT Allergy & Immunology; ATTEND Allergy & Immunology
PROC: HZ42ZZZ Group Counseling for Substance Abuse Treatment, Cognitive-Behavioral (ICD-10-PCS; principal; 2021-11-30)
DX: F16.20 Hallucinogen dependence, uncomplicated (principal); F12.20 Cannabis dependence, uncomplicated; F17.210 Nicotine dependence, cigarettes, uncomplicated; F20.9 Schizophrenia, unspecified; F31.9 Bipolar disorder, unspecified; F41.9 Anxiety disorder, unspecified; Z91.014 Allergy to mammalian meats; Z91.018 Allergy to other foods
CPT/HCPCS: 87811; C9803-CS; U0003; U0005

== ENCOUNTER 2021-12-29 01:01 | Inpatient (IN) | payer OTHER ==
[2021-12-29] MEDS ORDERED: MAGNESIUM HYDROX 2400MG/30ML ORAL SUSPENSION 30 ML CUP PO PRN (01:41)
[2021-12-29] MEDS ORDERED: hydrOXYzine PAMOATE 25 MG CAPSULE (FP) PO PRN (01:41)
[2021-12-29] MEDS ORDERED: BENZOCAINE/MENTHOL (CHLORASEPTIC ) LOZENGE MM PRN (01:41)
[2021-12-29] MEDS ORDERED: MAG HYDROX/AL HYDROX/SIMETH 30 ML UNIT-DOSE CUP PO PRN (01:41)
[2021-12-29] MEDS ORDERED: NICOTINE POLACRILEX 2 MG GUM BUC PRN (01:41)
[2021-12-29] MEDS ORDERED: IBUPROFEN 400 MG TABLET (FP) PO PRN (01:41)
[2021-12-29] MEDS ORDERED: P-EPHED 60MG/TRIPROLIDI 2.5MG TABLET PO PRN (01:41)
[2021-12-29] MEDS ORDERED: BISMUTH SUBSALICYLATE 524 MG/30 ML PO PRN (01:41)
[2021-12-29] MEDS ORDERED: DICYCLOMINE HCL 10 MG CAPSULE PO PRN (01:41)
[2021-12-29] MEDS ORDERED: METHOCARBAMOL 500 MG TABLET PO PRN (01:41)
[2021-12-29] MEDS ORDERED: guaiFENesin 200 MG/10 ML 10 ML UNIT-DOSE CUPS PO PRN (01:41)
[2021-12-29] MEDS ORDERED: ACETAMINOPHEN 325 MG TABLET (FP) PO PRN ×2 (01:41)
[2021-12-29] MEDS ORDERED: MAGNESIUM CITRATE 300 ML BOTTLE PO PRN (01:41)
[2021-12-29] MEDS ORDERED: LOPERAMIDE HCL 2 MG CAPSULE PO PRN (01:41)
[2021-12-29] MEDS ORDERED: ONDANSETRON *ODT* 4 MG TABLET SL PRN (01:41)
[2021-12-29 02:36] VITALS: BMI 29.1
[2021-12-29 09:22] VITALS: BP 135/88; PULSE 82; TEMP 96.9
[2021-12-29] MEDS ORDERED: PRENATAL VITAMINS W/ FOLIC ACID TABLET (FP) PO SCH (10:00)
[2021-12-29] MEDS ORDERED: NICOTINE 14 MG/24 HOURS TOPICAL PATCH TD SCH (10:00)
[2021-12-29] MEDS ORDERED: MELATONIN 5 MG TABLETS PO SCH (22:00)
[2021-12-29] MEDS ORDERED: THIAMINE HCL 100 MG TABLET (FP) PO SCH (22:00)
== END 2021-12-29 09:50 | disposition home or self-care (01) | DRG 775 ==
LOC: YASAS 01:01 → Y3N 02:01
PROVIDERS: ADMIT Allergy & Immunology; ATTEND Allergy & Immunology
PROC: HZ2ZZZZ Detoxification Services for Substance Abuse Treatment (ICD-10-PCS; principal; 2021-12-29)
DX: F10.230 Alcohol dependence with withdrawal, uncomplicated (principal); F16.20 Hallucinogen dependence, uncomplicated; F12.20 Cannabis dependence, uncomplicated; F17.210 Nicotine dependence, cigarettes, uncomplicated; F99 Mental disorder, not otherwise specified; I10 Essential (primary) hypertension; K21.9 Gastro-esophageal reflux disease without esophagitis; Z28.310 Unvaccinated for COVID-19; Z59.00 Homelessness unspecified; Z91.014 Allergy to mammalian meats; Z91.018 Allergy to other foods
CPT/HCPCS: C9803-CS; U0003; U0005